=== PATIENT | male | born 1990 | race African-American/Black ===

== ENCOUNTER 2016-07-10 10:14 | Emergency (ER) | payer OTHER ==
[~2016-07-10] VITALS: Ht 180.3 cm; Wt 118.8 kg
[~2016-07-10 10:14] MED LIST: Lidocaine 1% MPF 10mg/ml 5ml ONE
[2016-07-10 10:45] VITALS: BP 135/93
[2016-07-10] MEDS ORDERED: Bacitracin Oint UD TOPIC ONE (11:15)
[2016-07-10] MEDS ORDERED: Hydrogen Peroxide 120ml Bottle TOPIC ONE (11:15)
[2016-07-10] MEDS ORDERED: Bactrim DS (160mg/800mg) tab ORAL ONE (11:15)
[2016-07-10] MEDS ORDERED: Lidocaine 1% MPF 10mg/ml 5ml INJ ONE (12:15)
[2016-07-10] MEDS ORDERED: CEPHALEXIN500 MG ORAL (13:51)
[2016-07-10] MEDS ORDERED: IBUPROFEN600 MG ORAL (13:51)
[2016-07-10] MEDS ORDERED: BACTRIM DS TAB1 EAC1 ORAL (13:51)
[2016-07-10 14:00] VITALS: BP 135/93
--- NOTE | 2016-07-11 01:24 | Emergency Room Report ---
History of Present Illness General Chief Complaint: Lower Extremity Injury Source: Patient Present Illness HPI Patient presents with R 3rd toe pain, swelling and pus. He has been trying to express the pus. No fevers. Started when he wore wet shoes and had abrasion of toe 1 1/2 week ago. Painful /10 some radiation to foot, not to ankle or calf. No numbness of foot. Worse pain when dependent. No h/o diabetes. Mom has DM. No fevers, chills, NVD, dyspnea, chest pain. No dysuria. Tetanus UTD. Allergies: Coded Allergies: Crab (Verified Allergy, Severe, N/V, 07/10/16) Lobster (Verified Allergy, Severe, N/V, 07/10/16) SHRIMP (Verified Allergy, Severe, N/V, 07/10/16) Patient History Past Medical History: see triage record Social History: Reports: smoking - prior Social History Narrative food checkers and cashiers supervisor Reviewed Nursing Documentation: PMH: Agreed, PSxH: Agreed Nursing Documentation-PMH Past Medical History: No Stated History Review of Systems All Other Systems: negative except mentioned in HPI Physical Exam Vital Signs Date Time Temp Pulse Resp B/P Pulse Ox O2 Delivery O2 Flow Rate FiO2 07/10/16 10:21 98.2 91 18 135/93 99 Room Air Sp02 EP Interpretation: reviewed, normal General Appearance: well appearing, no apparent distress, GCS 15, non-toxic Head: normocephalic, atraumatic Eyes: bilateral eye PERRL, bilateral eye normal inspection ENT: hearing grossly normal, normal voice, moist mucus membranes Neck: full range of motion, supple Respiratory: chest non-tender, lungs clear, no respiratory distress, speaking full sentences Cardiovascular #2: 2+ radial (L), 2+ dorsalis pedis (R) Gastrointestinal: other - grossly normal Musculoskeletal: back normal, gait/station normal, normal range of motion, inflammation, swelling - 3rd toe, fairly localized Neurologic: alert, sensory intact, grossly normal Psychiatric: mood/affect normal Skin: other - pus draining from 3rd toe with some devitalized skin, no significant erythema Procedures Incision and Drainage Incision and Drainage : Consent: Verbal Blade Size: 11 I & D Procedure: betadine prep, sterile drapes applied, sterile dressing applied, gauze wick placed Wound Location: other - R 3rd toe Wound's Depth, Shape: superficial Wound Explored: contaminated - pus expressed Irrigated w/ Saline (ccs): 15 Anesthesia: 1% Lidocaine - 1/2 digital block Splint Applied?: No Sling Applied?: No Patient Tolerated: Well Complications: None Medical Decision Making Diagnostic Impression: Primary Impression: Abscess of third toe, right ER Course Patient with infected 3rd R toe. DDx; cellulitis, abscess. Starting to drain, but still looks swollen. Patient denies DM. Needs I and D and antibiotics are indicated. I and D performed. Pus expressed. Some devitalized skin. Irrigated and packed. No more drainage. Improved. Patient stable for outpatient observation and treatment. Last Vital Signs Date Time Temp Pulse Resp B/P Pulse Ox O2 Delivery O2 Flow Rate FiO2 07/10/16 14:00 98.2 91 18 135/93 99 Room Air Status: improved Disposition: HOME, SELF-CARE Condition: Improved Scripts Cephalexin* (KEFLEX*) 500 Mg Capsule 500 MG ORAL EVERY 6 HOURS, #28 CAP Prov: Sherwin Roque M.D. 07/10/16 Trimethoprim/Sulfamethoxazole 160/800* (BACTRIM DS TABLET*) 1 Each Tablet 1 TAB ORAL TWICE A DAY, #14 TAB Prov: Sherwin Roque M.D. 07/10/16 Ibuprofen* (MOTRIN*) 600 Mg Tablet 600 MG ORAL Q6H Y for For Pain, #20 TAB Prov: Sherwin Roque M.D. 07/10/16 Departure Forms: Return to School Return to School On: Jul 13, 2016 School Release Restrictions: None Patient Instructions: Abscess Additional Instructions: Elevation. Return tomorrow to have the drain replaced. OK to take tylenol. Sherwin Roque M.D. Jul 11, 2016 01:24
== END 2016-07-10 14:00 | disposition home or self-care (01) ==
LOC: EMR 11:31
DX: L02.611 Cutaneous abscess of right foot (principal)
CPT/HCPCS: 10060

== ENCOUNTER 2016-07-11 07:52 | Inpatient (IN) | payer OTHER ==
[~2016-07-11] VITALS: Ht 177.8 cm; Wt 120.2 kg
[~2016-07-11 07:52] MED LIST changes: +BACTRIM DS TAB1 EAC1 ORAL; +CEPHALEXIN500 MG ORAL; +IBUPROFEN600 MG ORAL; -Lidocaine 1% MPF 10mg/ml 5ml ONE; +NS 275 ML ONE; +Tubing IV Cassette IV ONE; +Vancomycin 1gm inj IVPB ONE
[2016-07-11 08:10] VITALS: BP 130/90
[2016-07-11] MEDS ORDERED: Vancomycin 1 GM in NS 275 ML IVPB ONE (08:45)
--- NOTE | 2016-07-11 08:55 | Emergency Room Report ---
History of Present Illness General Chief Complaint: Wound Recheck/Suture Removal Source: Patient Present Illness HPI This patient was seen here yesterday for an infection on his 3rd right toe. He underwent incision and drainage and is on oral antibiotics.The patient returns for a wound recheck. The initial symptoms started about a week and a half ago. He states that he believes a toenail from his other toe cut into the skin of his toe and then he developed an infection. He has not had any fever or chills. He denies nausea or vomiting. He states that he has had minimal improvement in the wound and redness of the foot. Allergies: Coded Allergies: Crab (Verified Allergy, Severe, N/V, 07/10/16) Lobster (Verified Allergy, Severe, N/V, 07/10/16) SHRIMP (Verified Allergy, Severe, N/V, 07/10/16) Patient History Past Medical History: none Past Surgical History: none Social History: Denies: alcohol use, drug use, smoking Reviewed Nursing Documentation: PMH: Agreed, PSxH: Agreed Nursing Documentation-PMH Past Medical History: No Stated History Review of Systems All Other Systems: negative except mentioned in HPI Physical Exam Vital Signs Date Time Temp Pulse Resp B/P Pulse Ox O2 Delivery O2 Flow Rate FiO2 07/11/16 07:58 97.0 87 14 130/90 96 Room Air Sp02 EP Interpretation: reviewed, normal General Appearance: no apparent distress, alert, GCS 15, non-toxic Head: normocephalic, atraumatic Eyes: bilateral eye PERRL, bilateral eye normal inspection ENT: hearing grossly normal, normal pharynx, no angioedema, normal voice Neck: full range of motion, supple/symm/no masses Respiratory: no respiratory distress, no retraction, no accessory muscle use, speaking full sentences Cardiovascular #1: regular rate, rhythm Gastrointestinal: non-distended Rectal: deferred Musculoskeletal: back normal, normal range of motion, non-tender, other - R. 3rd toe with swelling, maceration, erythema and purulent discharge. R. foot with erythema and swelling to mid foot. Neurologic: alert, oriented x3, responsive, motor strength/tone normal, sensory intact, speech normal Psychiatric: judgement/insight normal, memory normal, mood/affect normal, no suicidal/homicidal ideation Skin: warm/dry, well hydrated, other - See MSK exam Medical Decision Making Diagnostic Impression: Primary Impression: Abscess of third toe, right Additional Impression: Cellulitis and abscess of foot ER Course This patient presents with cellulitis of the right foot and purulent drainage from the right third toe. The patient did undergo an incision and drainage yesterday and has been on oral antibiotics. He is feeling outpatient therapy. He was given IV vancomycin here in the emergency department. He will be admitted for further IV antibiotics and further evaluation by surgery for possible operative incision and drainage. No evidence of sepsis or systemic infection at this time. Labs Test 07/11/16 08:45 White Blood Count 10.2 K/UL (4.8-10.8) Red Blood Count 5.36 M/UL (4.70-6.10) Hemoglobin 16.0 G/DL (14.2-18.0) Hematocrit 47.9 % (42.0-52.0) Mean Corpuscular Volume 89 FL (80-99) Mean Corpuscular Hemoglobin 29.9 PG (27.0-31.0) Mean Corpuscular Hemoglobin Concent 33.5 G/DL (32.0-36.0) Red Cell Distribution Width 11.3 % (11.6-14.8) Platelet Count 239 K/UL (150-450) Mean Platelet Volume 7.4 FL (6.5-10.1) Neutrophils (%) (Auto) 79.9 % (45.0-75.0) Lymphocytes (%) (Auto) 10.9 % (20.0-45.0) Monocytes (%) (Auto) 6.2 % (1.0-10.0) Eosinophils (%) (Auto) 1.7 % (0.0-3.0) Basophils (%) (Auto) 1.3 % (0.0-2.0) Sodium Level 139 mEQ/L (135-145) Potassium Level 3.8 mEQ/L (3.4-4.9) Chloride Level 97 mEQ/L (98-107) Carbon Dioxide Level 27 mEQ/L (20-30) Anion Gap 15 (5-15) Blood Urea Nitrogen 9 mg/dL (7-23) Creatinine 1.0 mg/dL (0.7-1.2) Estimat Glomerular Filtration Rate > 60 mL/min (>60) Glucose Level 105 mg/dL (74-106) Calcium Level 9.7 mg/dL (8.6-10.2) Total Bilirubin 1.0 mg/dL (0.0-1.2) Aspartate Amino Transf (AST/SGOT) 38 U/L (5-40) Alanine Aminotransferase (ALT/SGPT) 49 U/L (3-41) Alkaline Phosphatase 66 U/L (40-129) Total Protein 7.8 g/dL (6.6-8.7) Albumin 4.3 g/dL (3.5-5.2) Globulin 3.5 g/dL Albumin/Globulin Ratio 1.2 (1.0-2.7) Last Vital Signs Date Time Temp Pulse Resp B/P Pulse Ox O2 Delivery O2 Flow Rate FiO2 07/11/16 08:10 97.0 87 14 130/90 96 Room Air Disposition: ADMITTED INPATIENT Condition: Stable Referrals: [facility],REFERRING (PCP) ROBERT NOLASCO D.O. Jul 11, 2016 08:55
[2016-07-11] MEDS ORDERED: Ketorolac 30mg Inj IV ONE (09:00)
[2016-07-11 09:04] LABS: BASOPHILS % (AUTO) 1.3 % (0.0-2.0); EOSINOPHILS % (AUTO) 1.7 % (0.0-3.0); LYMPHOCYTES % (AUTO) 10.9 % (20.0-45.0); MEAN CORPUSCULAR HEMOGLOBIN 29.9 PG (27.0-31.0); MEAN CORPUSCULAR HGB CONC 33.5 G/DL (32.0-36.0); MEAN CORPUSCULAR VOLUME 89 FL (80-99); MEAN PLATELET VOLUME 7.4 FL (6.5-10.1); MONOCYTES % (AUTO) 6.2 % (1.0-10.0); NEUTROPHILS % (AUTO) 79.9 % (45.0-75.0); PLATELET COUNT 239 K/UL (150-450); RED BLOOD COUNT 5.36 M/UL (4.70-6.10); RED CELL DISTRIBUTION WIDTH 11.3 % (11.6-14.8); WHITE BLOOD COUNT 10.2 K/UL (4.8-10.8)
[2016-07-11 09:16] LABS: ALANINE AMINOTRANSFERASE 49 U/L (3-41); ALBUMIN/GLOBULIN RATIO 1.2 (1.0-2.7); ANION GAP 15 (5-15); ASPARTATE AMINO TRANSFERASE 38 U/L (5-40); CALCIUM 9.7 mg/dL (8.6-10.2); CARBON DIOXIDE 27 mEQ/L (20-30); CHLORIDE 97 mEQ/L (98-107); GLOMERULAR FILTRATION RATE > 60 mL/min (>60); HEMOLYSIS 3; POTASSIUM 3.8 mEQ/L (3.4-4.9); SODIUM 139 mEQ/L (135-145); TOTAL PROTEIN 7.8 g/dL (6.6-8.7)
[2016-07-11] MEDS ORDERED: Mylanta II UD 30ml ORAL PRN (13:15)
[2016-07-11] MEDS ORDERED: LORazepam Inj 2mg/ml 1ml IV PRN (13:15)
[2016-07-11] MEDS ORDERED: Miralax 17gm pkt ORAL PRN (13:15)
[2016-07-11 13:45] VITALS: BP 131/75
[2016-07-11] MEDS: Morphine Sulfate 2mg/ml Inj IVP PRN ×2 (16:01→20:25)
[2016-07-11] MEDS: Cefepime HCl 1 GM in D5W 55 ML IV SCH (16:01)
--- NOTE | 2016-07-11 17:25 | History and Physical ---
History of Present Illness General Date patient seen: Jul 11, 2016 Reason for Hospitalization: Wound Recheck/Suture Removal Present Illness HPI 25 year old male with an infection on his 3rd right toe was seen in ER yesterday for incision and drainage .The patient returned for a wound recheck. The initial symptoms started about a week and a half ago. He states that he believes a toenail from his other toe cut into the skin of his toe and then he developed an infection. He states that he has had minimal improvement in the wound and redness of the foot. He is admitted for surgical evaluation and possible IV antibiotics. Allergies: Coded Allergies: Crab (Verified Allergy, Severe, N/V, 07/10/16) Lobster (Verified Allergy, Severe, N/V, 07/10/16) SHRIMP (Verified Allergy, Severe, N/V, 07/10/16) Medication History Scheduled Cephalexin* (Keflex*), 500 MG ORAL EVERY 6 HOURS Trimethoprim/Sulfamethoxazole 160/800* (Bactrim Ds Tablet*), 1 TAB ORAL TWICE A DAY Scheduled PRN Ibuprofen* (Motrin*), 600 MG ORAL Q6H PRN for For Pain Patient History Healthcare decision maker Resuscitation status Full Code Advanced Directive on File Past Medical/Surgical History Past Medical/Surgical History: (1) No significant past medical history Review of Systems All Other Systems: negative except mentioned in HPI Physical Exam General Appearance: WD/WN Lines, tubes and drains: peripheral HEENT: normocephalic Neck: non-tender, normal alignment Cardiovascular/Chest: normal peripheral pulses, normal rate Genitourinary/Rectal: normal genital exam Extremities: other - right 2 toe swelling Last 24 Hour Vital Signs Date Time Temp Pulse Resp B/P Pulse Ox O2 Delivery O2 Flow Rate FiO2 07/11/16 13:45 97.6 70 21 131/75 95 Room Air 07/11/16 11:33 97.0 87 14 130/90 96 Room Air 07/11/16 09:35 97.0 07/11/16 08:10 97.0 87 14 130/90 96 Room Air 07/11/16 07:58 97.0 87 14 130/90 96 Room Air Laboratory Tests Test 07/11/16 08:45 White Blood Count 10.2 K/UL (4.8-10.8) Red Blood Count 5.36 M/UL (4.70-6.10) Hemoglobin 16.0 G/DL (14.2-18.0) Hematocrit 47.9 % (42.0-52.0) Mean Corpuscular Volume 89 FL (80-99) Mean Corpuscular Hemoglobin 29.9 PG (27.0-31.0) Mean Corpuscular Hemoglobin Concent 33.5 G/DL (32.0-36.0) Red Cell Distribution Width 11.3 % (11.6-14.8) L Platelet Count 239 K/UL (150-450) Mean Platelet Volume 7.4 FL (6.5-10.1) Neutrophils (%) (Auto) 79.9 % (45.0-75.0) H Lymphocytes (%) (Auto) 10.9 % (20.0-45.0) L Monocytes (%) (Auto) 6.2 % (1.0-10.0) Eosinophils (%) (Auto) 1.7 % (0.0-3.0) Basophils (%) (Auto) 1.3 % (0.0-2.0) Sodium Level 139 mEQ/L (135-145) Potassium Level 3.8 mEQ/L (3.4-4.9) Chloride Level 97 mEQ/L (98-107) L Carbon Dioxide Level 27 mEQ/L (20-30) Anion Gap 15 (5-15) Blood Urea Nitrogen 9 mg/dL (7-23) Creatinine 1.0 mg/dL (0.7-1.2) Estimat Glomerular Filtration Rate > 60 mL/min (>60) Glucose Level 105 mg/dL (74-106) Calcium Level 9.7 mg/dL (8.6-10.2) Total Bilirubin 1.0 mg/dL (0.0-1.2) Aspartate Amino Transf (AST/SGOT) 38 U/L (5-40) Alanine Aminotransferase (ALT/SGPT) 49 U/L (3-41) H Alkaline Phosphatase 66 U/L (40-129) Total Protein 7.8 g/dL (6.6-8.7) Albumin 4.3 g/dL (3.5-5.2) Globulin 3.5 g/dL Albumin/Globulin Ratio 1.2 (1.0-2.7) Microbiology Date/Time Source Procedure Growth Status 07/11/16 08:30 Wound Gram Stain - Final Resulted 07/11/16 08:30 Wound Wound Culture Pending Resulted Height (Feet): 5 Height (Inches): 10.00 Weight (Pounds): 265 Medications Current Medications Medications (Trade) Dose Ordered Sig/Jordi Route PRN Reason Start Time Stop Time Status Last Admin Dose Admin Acetaminophen (Tylenol) 650 mg Q4H PRN ORAL fever 07/11/16 13:15 08/10/16 13:14 Al Hydroxide/Mg Hydroxide (Mylanta II) 30 ml Q6H PRN ORAL dyspepsia 07/11/16 13:15 08/10/16 13:14 Cefepime HCl 1 gm/ Dextrose 55 ml @ 110 mls/hr Q12HR@0400,1600 IV 07/11/16 16:00 07/18/16 15:59 07/11/16 16:01 Dextrose (Dextrose 50%) STAT PRN IV Hypoglycemia 07/11/16 13:15 08/10/16 13:14 Heparin Sodium (Porcine) (Heparin 5000 units/ml) 5,000 units EVERY 12 HOURS SUBQ 07/11/16 21:00 08/10/16 20:59 Lorazepam (Ativan 2mg/ml 1ml) 0.5 mg Q4H PRN IV For Anxiety 07/11/16 13:15 07/18/16 13:14 Morphine Sulfate (Morphine Sulfate) 1 mg Q4H PRN IVP For Pain 07/11/16 13:15 07/18/16 13:14 07/11/16 16:01 Ondansetron HCl (Zofran) 4 mg Q6H PRN IVP Nausea & Vomiting 07/11/16 13:15 08/10/16 13:14 Polyethylene Glycol (Miralax) 17 gm HSPRN PRN ORAL Constipation 07/11/16 13:15 08/10/16 13:14 Vancomycin HCl 1 ea 1 ea DAILY PRN MISC Per rx protocol 07/11/16 13:15 08/10/16 13:14 Vancomycin HCl/ Dextrose (Vancomycin/D5W) 325 ml @ 162.5 mls/ hr Q8HR@0100,0900,1700 IVPB 07/11/16 17:00 07/16/16 16:59 Zolpidem Tartrate (Ambien) 5 mg HSPRN PRN ORAL Insomnia 07/11/16 13:15 08/10/16 13:14 BERNY CONNER Jul 11, 2016 17:25
[2016-07-11] MEDS: Vancomycin 1.5 GM in D5W 325 ML IVPB SCH (17:38)
[2016-07-11] MEDS: Heparin 5000 units/ml inj SUBQ SCH (20:24)
[2016-07-12] VITALS: BP 135/78
[2016-07-12] MEDS: Morphine Sulfate 2mg/ml Inj IVP PRN ×3 (00:24→16:32)
[2016-07-12] MEDS: Vancomycin 1.5 GM in D5W 325 ML IVPB SCH ×3 (00:24→20:50)
[2016-07-12 04:00] VITALS: BP 134/75
[2016-07-12] MEDS: Cefepime HCl 1 GM in D5W 55 ML IV SCH ×2 (04:08→16:31)
[2016-07-12 07:55] LABS: HEMOGLOBIN A1C 5.2 % (< 6.0)
[2016-07-12 08:00] VITALS: BP 141/78
[2016-07-12] MEDS ORDERED: Morphine Sulfate 2mg/ml Inj IVP PRN ×2 (08:00→08:02)
[2016-07-12 08:05] LABS: BASOPHILS % (AUTO) 0.7 % (0.0-2.0); EOSINOPHILS % (AUTO) 3.1 % (0.0-3.0); LYMPHOCYTES % (AUTO) 18.8 % (20.0-45.0); MEAN CORPUSCULAR HEMOGLOBIN 29.4 PG (27.0-31.0); MEAN CORPUSCULAR HGB CONC 32.7 G/DL (32.0-36.0); MEAN CORPUSCULAR VOLUME 90 FL (80-99); MEAN PLATELET VOLUME 7.1 FL (6.5-10.1); MONOCYTES % (AUTO) 7.4 % (1.0-10.0); NEUTROPHILS % (AUTO) 69.9 % (45.0-75.0); PLATELET COUNT 229 K/UL (150-450); RED BLOOD COUNT 4.98 M/UL (4.70-6.10); RED CELL DISTRIBUTION WIDTH 11.6 % (11.6-14.8); WHITE BLOOD COUNT 8.8 K/UL (4.8-10.8)
[2016-07-12 08:13] LABS: ALANINE AMINOTRANSFERASE 39 U/L (3-41); ALBUMIN/GLOBULIN RATIO 1.1 (1.0-2.7); ANION GAP 16 (5-15); ASPARTATE AMINO TRANSFERASE 27 U/L (5-40); CALCIUM 9.2 mg/dL (8.6-10.2); CARBON DIOXIDE 25 mEQ/L (20-30); CHLORIDE 97 mEQ/L (98-107); CHOLESTEROL 136 mg/dL (< 200); CHOLESTEROL/HDL RATIO 2.7 (3.3-4.4); CREATININE 0.9 mg/dL (0.7-1.2); GLOMERULAR FILTRATION RATE > 60 mL/min (>60); HEMOLYSIS 6; LDL CHOLESTEROL (CALC.) 70 mg/dL (60-99); POTASSIUM 3.9 mEQ/L (3.4-4.9); SODIUM 138 mEQ/L (135-145)
[2016-07-12] MEDS: Heparin 5000 units/ml inj SUBQ SCH ×2 (09:00→21:00)
--- NOTE | 2016-07-12 10:23 | Consultation ---
Consult Note Consult Note Consulting specialty: Podiatry Consulting physician: Jameel Samano DPM covering for Wing Garcia DPM Reason for consult: Right 3rd toe abscess History of Present Illness: Ciaran Barrios is a 25 year old male who was admitted on Jul 11, 2016 at 10:25 with right 3rd toe abscess. He states that the wound started one week ago huynh his adjacent 4th toe had an elongated toenail that rubbed against the 3rd toe causing a wound. The wound started becoming inflamed, painful, and edematous. He was evaluated at the emergency department 2 days ago, an I&D was performed, the wound was packed, and he was started on oral antibiotics. He returned to the emergency department yesterday for re-evaluation and was admitted to the hospital. He denies nausea, vomiting, fevers, or chills. Problems: No known Social History: Patient states that he smoked 3-4 cigarettes per day, drinks alcohol 2-3 times per week (drinking 3-4 beers), and denies illicit drug use Family and Surgical History: Non contributory Subjective Subjective Allergies: Coded Allergies: Crab (Verified Allergy, Severe, N/V, 07/10/16) Lobster (Verified Allergy, Severe, N/V, 07/10/16) SHRIMP (Verified Allergy, Severe, N/V, 07/10/16) Antibiotics: Vancomycin and Cefepime. Please refer to chart for all other medications Objective Objective Exam Last 24 Hour Vital Signs Date Time Temp Pulse Resp B/P Pulse Ox O2 Delivery O2 Flow Rate FiO2 07/12/16 08:00 97.9 87 18 141/78 98 Room Air 07/12/16 04:00 97.7 76 18 134/75 100 Room Air 07/12/16 00:00 98.1 80 16 135/78 95 Room Air 07/11/16 13:45 97.6 70 21 131/75 95 Room Air 07/11/16 11:33 97.0 87 14 130/90 96 Room Air Laboratory Tests Test 07/12/16 06:00 White Blood Count 8.8 K/UL (4.8-10.8) Red Blood Count 4.98 M/UL (4.70-6.10) Hemoglobin 14.7 G/DL (14.2-18.0) Hematocrit 44.9 % (42.0-52.0) Mean Corpuscular Volume 90 FL (80-99) Mean Corpuscular Hemoglobin 29.4 PG (27.0-31.0) Mean Corpuscular Hemoglobin Concent 32.7 G/DL (32.0-36.0) Red Cell Distribution Width 11.6 % (11.6-14.8) Platelet Count 229 K/UL (150-450) Mean Platelet Volume 7.1 FL (6.5-10.1) Neutrophils (%) (Auto) 69.9 % (45.0-75.0) Lymphocytes (%) (Auto) 18.8 % (20.0-45.0) L Monocytes (%) (Auto) 7.4 % (1.0-10.0) Eosinophils (%) (Auto) 3.1 % (0.0-3.0) H Basophils (%) (Auto) 0.7 % (0.0-2.0) Sodium Level 138 mEQ/L (135-145) Potassium Level 3.9 mEQ/L (3.4-4.9) Chloride Level 97 mEQ/L (98-107) L Carbon Dioxide Level 25 mEQ/L (20-30) Anion Gap 16 (5-15) H Blood Urea Nitrogen 9 mg/dL (7-23) Creatinine 0.9 mg/dL (0.7-1.2) Estimat Glomerular Filtration Rate > 60 mL/min (>60) Glucose Level 106 mg/dL (74-106) Hemoglobin A1c 5.2 % (< 6.0) Calcium Level 9.2 mg/dL (8.6-10.2) Total Bilirubin 0.6 mg/dL (0.0-1.2) Aspartate Amino Transf (AST/SGOT) 27 U/L (5-40) Alanine Aminotransferase (ALT/SGPT) 39 U/L (3-41) Alkaline Phosphatase 75 U/L (40-129) Total Protein 7.0 g/dL (6.6-8.7) Albumin 3.7 g/dL (3.5-5.2) Globulin 3.3 g/dL Albumin/Globulin Ratio 1.1 (1.0-2.7) Triglycerides Level 73 mg/dL (< 150) Cholesterol Level 136 mg/dL (< 200) LDL Cholesterol 70 mg/dL (60-99) HDL Cholesterol 51 mg/dL (> 60) Cholesterol/HDL Ratio 2.7 (3.3-4.4) L Thyroid Stimulating Hormone (TSH) 1.320 uIU/mL (0.300-4.500) Microbiology Date/Time Source Procedure Growth Status 07/11/16 08:30 Wound Gram Stain - Final Resulted 07/11/16 08:30 Wound Wound Culture Pending Resulted Assessment/Plan ASSESSMENT: - Right 3rd toe abscess - Right foot pain PLAN: - Consent obtained to perform I&D - Ordering MRI to evaluate for osteomyelitis - Continue pain management - Continue daily dressing changes - Follow up wound culture ADDENDUM: Consent was obtained and the right foot 3rd toe was anesthetized using 3cc of 2 % lidocaine plain. Once appropriate anesthesia was achieved an I&D was performed and approximately 3mL of purulence was drained. The patient tolerated the procedure well without complications. The wound was dressed with betadine moistened gauze, dry 4x4 gauze, and secured with kerlix. Jameel Samano DPM Jul 12, 2016 10:23
--- NOTE | 2016-07-12 11:05 | Consultation ---
Consult Note Consult Note ID # [id number] DENIA ANTONY M.D. Jul 12, 2016 11:05
[2016-07-12] MEDS ORDERED: Lidocaine 2% MPF 5ml Vial INJ ONE (11:30)
[2016-07-12 12:00] VITALS: BP 147/78
[2016-07-12] MEDS: Morphine Sulfate 4mg/ml Inj IVP PRN ×3 (13:37→23:01)
[2016-07-12 16:00] VITALS: BP 149/90
--- NOTE | 2016-07-12 17:06 | Diagnostic Imaging Report ---
Indication: Pain, swelling, cellulitis of right middle no history infected cut on toe x1 week, history of drainage x1 day Technique: Sagittal, axial, coronal T1 fast spin-echo and fast spin-echo STIR images obtained of the right foot. Comparison: None. No plain radiographs available. Findings: There is edema of the third digit. No focal fluid collections are demonstrated. There is subtle slightly increased STIR signal within the third distal phalanx, but no comparable T1 signal abnormality. No marrow signal abnormality is demonstrated elsewhere. Impression: Edema of the third digit, consistent with stated clinical history of cellulitis. No drainable fluid collection demonstrated Very slight T2 signal abnormality of the third distal phalanx without corresponding T1 signal abnormal. Most likely reactive marrow edema secondary to the surrounding cellulitis, but early osteomyelitis cannot be completely ruled out. No other bony signal abnormality demonstrated.
[2016-07-12 19:00] VITALS: BP 148/76
--- NOTE | 2016-07-12 20:38 | Consultation ---
DATE OF CONSULTATION: INFECTIOUS DISEASES CONSULTATION CONSULTING PHYSICIAN: Collin Delaney M.D. REFERRING PHYSICIAN: Dari Cunha M.D. REASON FOR CONSULTATION: Evaluation of the patient for left foot cellulitis with infection, possible osteomyelitis, antibiotic management. HISTORY OF PRESENT ILLNESS: The patient is a 25-year-old male with past medical history significant for obesity, who was admitted to this medical center with the left third toe wound. The patient was seen recently in the emergency room. I and D was done. The patient was discharged with oral antibiotic, however, the patient did not improve and now has been admitted for further workups. PAST MEDICAL HISTORY: As mentioned above. ALLERGIES: No known drug allergies. FAMILY HISTORY: Noncontributory. REVIEW OF SYSTEMS: HEENT: No recent change in vision or hearing. Pulmonary: No cough or shortness of breath. Cardiovascular: No chest pain or palpitation. Gastrointestinal/abdomen: No nausea or vomiting. Genitourinary: No dysuria. Musculoskeletal: As mentioned above. Neurologic: No seizure. LABORATORY DATA: White blood cells 8.8, hemoglobin 14, and platelets 229,000. BUN 9 and creatinine 0.9. ALT and AST unremarkable. Wound culture is pending. Blood culture is pending. PHYSICAL EXAMINATION: VITAL SIGNS: Temperature 97.9 degrees, blood pressure 141/78, pulse 86, and respiratory rate 18. HEENT: Mild pale conjunctivae. No icterus. NECK: No lymphadenopathy. CHEST: Coarse breathing sounds. HEART: S1 and S2. ABDOMEN: Soft and nontender. EXTREMITIES: The patient has a left wound on the lateral aspect of the third toe with purulent discharge. NEUROLOGIC: Awake and alert. ASSESSMENT: 1. Left third toe wound infection/abscess, rule out osteomyelitis. 2. Rule out bacteremia. PLAN: 1. We will continue the patient on vancomycin and cefepime. 2. Monitor CBC. 3. Monitor BMP. 4. Monitor cultures (wound and blood). 5. We will follow MRI reports. Based on patient's clinical course and labs, we will do further recommendations. 6. Podiatry is following the patient for further management. Thank you, Dr. Cunha, for allowing me to participate in the care this patient. I will follow the patient with you during this hospitalization. Collin Delaney M.D. DR: KATHRINE JOB#: [id number] CC:
--- NOTE | 2016-07-12 22:37 | Pulmonology Progress Note ---
Assessment/Plan Problems: (1) Abscess of third toe, right Assessment/Plan improving s/p debridement MRI done Subjective ROS Limited/Unobtainable: No Interval Events: less pain, doing better, Allergies: Coded Allergies: Crab (Verified Allergy, Severe, N/V, 07/10/16) Lobster (Verified Allergy, Severe, N/V, 07/10/16) SHRIMP (Verified Allergy, Severe, N/V, 07/10/16) Objective Last 24 Hour Vital Signs Date Time Temp Pulse Resp B/P Pulse Ox O2 Delivery O2 Flow Rate FiO2 07/12/16 19:00 97.5 91 20 148/76 98 Room Air 07/12/16 17:02 97.3 07/12/16 16:00 97.3 84 20 149/90 99 Room Air 07/12/16 12:00 97.7 88 24 147/78 100 Room Air 07/12/16 08:00 97.9 87 18 141/78 98 Room Air 07/12/16 04:00 97.7 76 18 134/75 100 Room Air 07/12/16 00:00 98.1 80 16 135/78 95 Room Air Intake and Output 07/11/16 07/12/16 19:00 07:00 Intake Total 275 ml 400 ml Balance 275 ml 400 ml Intake Oral 400 ml IV Total 275 ml # Voids 4 General Appearance: WD/WN HEENT: normocephalic Respiratory/Chest: chest wall non-tender, lungs clear Cardiovascular: normal peripheral pulses, normal rate Abdomen: normal bowel sounds Genitourinary: normal external genitalia 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 Lymphatic: no neck adenopathy Microbiology Date/Time Source Procedure Growth Status 07/11/16 08:30 Wound Gram Stain - Final Resulted 07/11/16 08:30 Wound Culture - Preliminary Staphylococcus Aureus Resulted Laboratory Tests 07/12/16 06:00: White Blood Count 8.8, Red Blood Count 4.98, Hemoglobin 14.7, Hematocrit 44.9, Mean Corpuscular Volume 90, Mean Corpuscular Hemoglobin 29.4, Mean Corpuscular Hemoglobin Concent 32.7, Red Cell Distribution Width 11.6, Platelet Count 229, Mean Platelet Volume 7.1, Neutrophils (%) (Auto) 69.9, Lymphocytes (%) (Auto) 18.8L, Monocytes (%) (Auto) 7.4, Eosinophils (%) (Auto) 3.1H, Basophils (%) ( Auto) 0.7, Sodium Level 138, Potassium Level 3.9, Chloride Level 97L, Carbon Dioxide Level 25, Anion Gap 16H, Blood Urea Nitrogen 9, Creatinine 0.9, Estimat Glomerular Filtration Rate > 60, Glucose Level 106, Hemoglobin A1c 5.2, Calcium Level 9.2, Total Bilirubin 0.6, Aspartate Amino Transf (AST/SGOT) 27, Alanine Aminotransferase (ALT/SGPT) 39, Alkaline Phosphatase 75, Total Protein 7.0, Albumin 3.7, Globulin 3.3, Albumin/Globulin Ratio 1.1, Triglycerides Level 73, Cholesterol Level 136, LDL Cholesterol 70, HDL Cholesterol 51, Cholesterol/HDL Ratio 2.7L, Thyroid Stimulating Hormone (TSH) 1.320 07/12/16 16:30: Vancomycin Level Trough 10.7 Current Medications Medications (Trade) Dose Ordered Sig/Jordi Route PRN Reason Start Time Stop Time Status Last Admin Dose Admin Acetaminophen (Tylenol) 650 mg Q4H PRN ORAL fever 07/11/16 13:15 08/10/16 13:14 Al Hydroxide/Mg Hydroxide (Mylanta II) 30 ml Q6H PRN ORAL dyspepsia 07/11/16 13:15 08/10/16 13:14 Cefepime HCl 1 gm/ Dextrose 55 ml @ 110 mls/hr Q12HR@0400,1600 IV 07/11/16 16:00 07/18/16 15:59 07/12/16 16:31 Cyclobenzaprine HCl (Flexeril) 5 mg Q6H PRN ORAL Muscle Spasm 07/12/16 17:00 08/11/16 16:59 Dextrose (Dextrose 50%) STAT PRN IV Hypoglycemia 07/11/16 13:15 08/10/16 13:14 Heparin Sodium (Porcine) (Heparin 5000 units/ml) 5,000 units EVERY 12 HOURS SUBQ 07/11/16 21:00 08/10/16 20:59 07/12/16 21:00 Lorazepam (Ativan 2mg/ml 1ml) 0.5 mg Q4H PRN IV For Anxiety 07/11/16 13:15 07/18/16 13:14 Morphine Sulfate (Morphine Sulfate) 2 mg Q4H PRN IVP Moderate Pain (Pain Scale 4-6) 07/12/16 12:03 07/19/16 12:02 07/12/16 16:32 Morphine Sulfate (Morphine Sulfate) 4 mg Q3HR PRN IVP Severe Pain (Pain Scale 7-10) 07/12/16 12:30 07/19/16 12:29 07/12/16 20:50 Ondansetron HCl (Zofran) 4 mg Q6H PRN IVP Nausea & Vomiting 07/11/16 13:15 08/10/16 13:14 Polyethylene Glycol (Miralax) 17 gm HSPRN PRN ORAL Constipation 07/11/16 13:15 08/10/16 13:14 Vancomycin HCl 1 ea 1 ea DAILY PRN MISC Per rx protocol 07/11/16 13:15 08/10/16 13:14 Vancomycin HCl/ Dextrose (Vancomycin/D5W) 325 ml @ 162.5 mls/ hr Q8HR@0100,0900,1700 IVPB 07/11/16 17:00 07/16/16 16:59 07/12/16 20:50 Zolpidem Tartrate (Ambien) 5 mg HSPRN PRN ORAL Insomnia 07/11/16 13:15 08/10/16 13:14 BERNY CONNER Jul 12, 2016 22:37
[2016-07-13] MEDS: Vancomycin 1.5 GM in D5W 325 ML IVPB SCH ×3 (00:41→17:13)
[2016-07-13] MEDS: Cefepime HCl 1 GM in D5W 55 ML IV SCH ×2 (03:32→15:56)
[2016-07-13] MEDS: Morphine Sulfate 4mg/ml Inj IVP PRN ×3 (03:39→16:04)
[2016-07-13 08:15] VITALS: BP 130/77
[2016-07-13] MEDS: Heparin 5000 units/ml inj SUBQ SCH ×2 (08:56→21:15)
[2016-07-13 11:29] VITALS: BP 125/74
--- NOTE | 2016-07-13 12:19 | Podiatric Progress Note ---
Assessment/Plan Patient Ciaran Barrios is a 25 year old male who was admitted on Jul 11, 2016 at 10:25 with right foot 3rd toe abscess Problems: (1) Cellulitis and abscess of foot (2) Abscess of third toe, right Assessment/Plan - More purulence was expressed from the wound today. Continue daily dressing changes - Culture is positive for MRSA. Right foot MRI with "very slight T2 signal abnormality of the third distal phalanx without corresponding T1 signal abnormal ." Continue appropriate antibiotics per infectious disease specialist recommendations - Will continue to monitor patient closely - Okay to weight bear on right heel Subjective Reason for consult Right 3rd toe abscess Allergies: Coded Allergies: Crab (Verified Allergy, Severe, N/V, 07/10/16) Lobster (Verified Allergy, Severe, N/V, 07/10/16) SHRIMP (Verified Allergy, Severe, N/V, 07/10/16) Subjective Patient states that the toe feels much better than yesterday. He is able to move the toe with minimal pain. No nausea, vomiting, fevers, or chills Objective Exam Last 24 Hour Vital Signs Date Time Temp Pulse Resp B/P Pulse Ox O2 Delivery O2 Flow Rate FiO2 07/13/16 11:29 97.7 74 19 125/74 97 Room Air 07/13/16 09:20 97.9 07/13/16 08:15 97.9 85 19 130/77 95 Room Air 07/12/16 19:00 97.5 91 20 148/76 98 Room Air 07/12/16 17:02 97.3 07/12/16 16:00 97.3 84 20 149/90 99 Room Air Laboratory Tests Test 07/12/16 16:30 Vancomycin Level Trough 10.7 ug/mL (5.0-12.0) Microbiology Date/Time Source Procedure Growth Status 07/11/16 08:30 Wound Gram Stain - Final Complete 07/11/16 08:30 Wound Culture - Final Staphylococcus Aureus - Mrsa Complete Exam Narrative Right 3rd toe with edema, erythema, and warmth. There is a wound on the lateral aspect of the toe. Purulence continues to drain from the wound but is much less compared to yesterday. IMAGING: Procedure: MRI Right Foot WO Contrast Indication: Pain, swelling, cellulitis of right middle no history infected cut on toe x1 week, history of drainage x1 day Technique: Sagittal, axial, coronal T1 fast spin-echo and fast spin-echo STIR images obtained of the right foot. Comparison: None. No plain radiographs available. Findings: There is edema of the third digit. No focal fluid collections are demonstrated. There is subtle slightly increased STIR signal within the third distal phalanx, but no comparable T1 signal abnormality. No marrow signal abnormality is demonstrated elsewhere. Impression: Edema of the third digit, consistent with stated clinical history of cellulitis. No drainable fluid collection demonstrated Very slight T2 signal abnormality of the third distal phalanx without corresponding T1 signal abnormal. Most likely reactive marrow edema secondary to the surrounding cellulitis, but early osteomyelitis cannot be completely ruled out. No other bony signal abnormality demonstrated. Jameel Samano DPM Jul 13, 2016 12:19
[2016-07-13 16:00] VITALS: BP 135/71
[2016-07-13 19:00] VITALS: BP 137/79
--- NOTE | 2016-07-13 20:36 | Infectious Diseases Prog Note ---
Assessment/Plan Assessment/Plan A The patient is a 25-year-old male with left foot cellulitis/ left third toe wound infection Wnd Cx: MRSA MRI : early osteomyelitis cannot be completely ruled out. PLAN: Cont vancomycin and cefepime d# 2 Monitor CBC. Monitor BMP. Monitor cultures ( blood). Bone scan . Podiatry Subjective Constitutional: Denies: anorexia, chills, drenching sweats, fatigue, fever, no symptoms, other Allergies: Coded Allergies: Crab (Verified Allergy, Severe, N/V, 07/10/16) Lobster (Verified Allergy, Severe, N/V, 07/10/16) SHRIMP (Verified Allergy, Severe, N/V, 07/10/16) Objective Vital Signs Last 24 Hour Vital Signs Date Time Temp Pulse Resp B/P Pulse Ox O2 Delivery O2 Flow Rate FiO2 07/13/16 16:34 97.7 07/13/16 16:00 97.9 82 20 135/71 98 Room Air 07/13/16 11:29 97.7 74 19 125/74 97 Room Air 07/13/16 08:15 97.9 85 19 130/77 95 Room Air Height (Feet): 5 Height (Inches): 10.00 Weight (Pounds): 265 HEENT: atraumatic Respiratory/Chest: normal breath sounds Cardiovascular: regular rhythm Abdomen: non distended Microbiology Date/Time Source Procedure Growth Status 07/11/16 08:30 Wound Gram Stain - Final Complete 07/11/16 08:30 Wound Culture - Final Staphylococcus Aureus - Mrsa Complete Current Medications Medications (Trade) Dose Ordered Sig/Jordi Route PRN Reason Start Time Stop Time Status Last Admin Dose Admin Acetaminophen (Tylenol) 650 mg Q4H PRN ORAL fever 07/11/16 13:15 08/10/16 13:14 Al Hydroxide/Mg Hydroxide (Mylanta II) 30 ml Q6H PRN ORAL dyspepsia 07/11/16 13:15 08/10/16 13:14 Cefepime HCl/ Dextrose (Maxipime/D5W) 55 ml @ 110 mls/hr Q12HR@0400,1600 IV 07/11/16 16:00 07/18/16 15:59 07/13/16 15:56 Cyclobenzaprine HCl 5 mg 5 mg Q6H PRN ORAL Muscle Spasm 07/12/16 17:00 08/11/16 16:59 Dextrose (Dextrose 50%) STAT PRN IV Hypoglycemia 07/11/16 13:15 08/10/16 13:14 Heparin Sodium (Porcine) (Heparin 5000 units/ml) 5,000 units EVERY 12 HOURS SUBQ 07/11/16 21:00 08/10/16 20:59 07/13/16 08:56 Lorazepam (Ativan 2mg/ml 1ml) 0.5 mg Q4H PRN IV For Anxiety 07/11/16 13:15 07/18/16 13:14 Morphine Sulfate (Morphine Sulfate) 2 mg Q4H PRN IVP Moderate Pain (Pain Scale 4-6) 07/12/16 12:03 07/19/16 12:02 07/12/16 16:32 Morphine Sulfate (Morphine Sulfate) 4 mg Q3HR PRN IVP Severe Pain (Pain Scale 7-10) 07/12/16 12:30 07/19/16 12:29 07/13/16 16:04 Ondansetron HCl (Zofran) 4 mg Q6H PRN IVP Nausea & Vomiting 07/11/16 13:15 08/10/16 13:14 Polyethylene Glycol (Miralax) 17 gm HSPRN PRN ORAL Constipation 07/11/16 13:15 08/10/16 13:14 Vancomycin HCl 1 ea 1 ea DAILY PRN MISC Per rx protocol 07/11/16 13:15 08/10/16 13:14 Vancomycin HCl/ Dextrose (Vancomycin/D5W) 275 ml @ 183.333 mls/hr Q6HR IVPB 07/14/16 00:00 07/19/16 00:00 Zolpidem Tartrate (Ambien) 5 mg HSPRN PRN ORAL Insomnia 07/11/16 13:15 08/10/16 13:14 DENIA ANTONY M.D. Jul 13, 2016 20:36
[2016-07-13] MEDS: Morphine Sulfate 2mg/ml Inj IVP PRN (21:10)
[2016-07-13] MEDS: Cyclobenzaprine 10mg Tab ORAL PRN (21:18)
--- NOTE | 2016-07-13 22:49 | Diagnostic Imaging Report ---
APPROVED REPORT CPT Code: 49366 Present Symptoms Comments: Right foot pain BILATERAL: Imaging reveals a patent deep venous system bilaterally. There is no evidence of thrombus within the femoral, popliteal or tibial segments. The greater saphenous veins are also within normal limits. Doppler indicates normal spontaneous flow within these segments.
--- NOTE | 2016-07-13 23:23 | Pulmonology Progress Note ---
Assessment/Plan Problems: (1) Abscess of third toe, right Assessment/Plan improving s/p debridement MRI done Subjective ROS Limited/Unobtainable: No Interval Events: less pain Allergies: Coded Allergies: Crab (Verified Allergy, Severe, N/V, 07/10/16) Lobster (Verified Allergy, Severe, N/V, 07/10/16) SHRIMP (Verified Allergy, Severe, N/V, 07/10/16) Objective Last 24 Hour Vital Signs Date Time Temp Pulse Resp B/P Pulse Ox O2 Delivery O2 Flow Rate FiO2 07/13/16 21:40 97.7 07/13/16 21:40 97.7 07/13/16 19:00 97.7 81 20 137/79 99 Room Air 07/13/16 16:34 97.7 07/13/16 16:00 97.9 82 20 135/71 98 Room Air 07/13/16 11:29 97.7 74 19 125/74 97 Room Air 07/13/16 08:15 97.9 85 19 130/77 95 Room Air Intake and Output 07/12/16 07/13/16 19:00 07:00 Intake Total 440 ml 240 ml Output Total 500 ml Balance 440 ml -260 ml Intake Oral 440 ml 240 ml Output Urine Total 500 ml # Voids 1 3 General Appearance: WD/WN HEENT: normocephalic, atraumatic Respiratory/Chest: chest wall non-tender, lungs clear Cardiovascular: normal peripheral pulses, normal rate Abdomen: normal bowel sounds, soft, non tender Genitourinary: normal external genitalia Microbiology Date/Time Source Procedure Growth Status 07/11/16 08:30 Wound Gram Stain - Final Complete 07/11/16 08:30 Wound Culture - Final Staphylococcus Aureus - Mrsa Complete Current Medications Medications (Trade) Dose Ordered Sig/Jordi Route PRN Reason Start Time Stop Time Status Last Admin Dose Admin Acetaminophen (Tylenol) 650 mg Q4H PRN ORAL fever 07/11/16 13:15 08/10/16 13:14 Al Hydroxide/Mg Hydroxide (Mylanta II) 30 ml Q6H PRN ORAL dyspepsia 07/11/16 13:15 08/10/16 13:14 Cefepime HCl/ Dextrose (Maxipime/D5W) 55 ml @ 110 mls/hr Q12HR@0400,1600 IV 07/11/16 16:00 07/18/16 15:59 07/13/16 15:56 Cyclobenzaprine HCl 5 mg 5 mg Q6H PRN ORAL Muscle Spasm 07/12/16 17:00 08/11/16 16:59 07/13/16 21:18 Dextrose (Dextrose 50%) STAT PRN IV Hypoglycemia 07/11/16 13:15 08/10/16 13:14 Heparin Sodium (Porcine) (Heparin 5000 units/ml) 5,000 units EVERY 12 HOURS SUBQ 07/11/16 21:00 08/10/16 20:59 07/13/16 21:15 Lorazepam (Ativan 2mg/ml 1ml) 0.5 mg Q4H PRN IV For Anxiety 07/11/16 13:15 07/18/16 13:14 Morphine Sulfate (Morphine Sulfate) 2 mg Q4H PRN IVP Moderate Pain (Pain Scale 4-6) 07/12/16 12:03 07/19/16 12:02 07/13/16 21:10 Morphine Sulfate (Morphine Sulfate) 4 mg Q3HR PRN IVP Severe Pain (Pain Scale 7-10) 07/12/16 12:30 07/19/16 12:29 07/13/16 16:04 Ondansetron HCl (Zofran) 4 mg Q6H PRN IVP Nausea & Vomiting 07/11/16 13:15 08/10/16 13:14 Polyethylene Glycol (Miralax) 17 gm HSPRN PRN ORAL Constipation 07/11/16 13:15 08/10/16 13:14 Vancomycin HCl 1 ea 1 ea DAILY PRN MISC Per rx protocol 07/11/16 13:15 08/10/16 13:14 Vancomycin HCl/ Dextrose (Vancomycin/D5W) 275 ml @ 183.333 mls/hr Q6HR IVPB 07/14/16 00:00 07/19/16 00:00 Zolpidem Tartrate (Ambien) 5 mg HSPRN PRN ORAL Insomnia 07/11/16 13:15 08/10/16 13:14 BERNY CONNER Jul 13, 2016 23:23
[2016-07-14] VITALS: BP 123/75
[2016-07-14] MEDS: Vancomycin 1.25 GM in D5W 275 ML IVPB SCH ×4 (00:08→19:21)
[2016-07-14] MEDS: Zolpidem 5mg tab ORAL PRN ×2 (00:15→22:42)
[2016-07-14] MEDS: Cefepime HCl 1 GM in D5W 55 ML IV SCH (03:32)
[2016-07-14 04:00] VITALS: BP 130/72
[2016-07-14] MEDS: Morphine Sulfate 4mg/ml Inj IVP PRN ×2 (06:47→17:06)
[2016-07-14 08:30] VITALS: BP 132/70
[2016-07-14] MEDS: Heparin 5000 units/ml inj SUBQ SCH ×2 (09:20→20:28)
--- NOTE | 2016-07-14 10:17 | Infectious Diseases Prog Note ---
Assessment/Plan Assessment/Plan A The patient is a 25-year-old male with left foot cellulitis/ left third toe wound infection Wnd Cx: MRSA MRI : early osteomyelitis cannot be completely ruled out. Afebrile Obesity PLAN: Cont vancomycin and DC cefepime d# 3 Monitor CBC. Monitor BMP. Monitor cultures ( blood). Bone scan : P Podiatry following Subjective Constitutional: Denies: anorexia, chills, drenching sweats, fatigue, fever, no symptoms, other Allergies: Coded Allergies: Crab (Verified Allergy, Severe, N/V, 07/10/16) Lobster (Verified Allergy, Severe, N/V, 07/10/16) SHRIMP (Verified Allergy, Severe, N/V, 07/10/16) Objective Vital Signs Last 24 Hour Vital Signs Date Time Temp Pulse Resp B/P Pulse Ox O2 Delivery O2 Flow Rate FiO2 07/14/16 08:30 98.1 75 19 132/70 97 Room Air 07/14/16 04:00 97.3 67 18 130/72 96 Room Air 07/14/16 00:00 96.3 61 18 123/75 99 Room Air 07/13/16 21:40 97.7 07/13/16 21:40 97.7 07/13/16 19:00 97.7 81 20 137/79 99 Room Air 07/13/16 16:34 97.7 07/13/16 16:00 97.9 82 20 135/71 98 Room Air 07/13/16 11:29 97.7 74 19 125/74 97 Room Air Height (Feet): 5 Height (Inches): 10.00 Weight (Pounds): 265 HEENT: atraumatic Respiratory/Chest: normal breath sounds Cardiovascular: regularly irregular Abdomen: soft, non tender Microbiology Date/Time Source Procedure Growth Status 07/12/16 12:30 Blood Blood Culture - Preliminary NO GROWTH AFTER 24 HOURS Resulted 07/12/16 12:20 Blood Blood Culture - Preliminary NO GROWTH AFTER 24 HOURS Resulted Current Medications Medications (Trade) Dose Ordered Sig/Jordi Route PRN Reason Start Time Stop Time Status Last Admin Dose Admin Acetaminophen (Tylenol) 650 mg Q4H PRN ORAL fever 07/11/16 13:15 08/10/16 13:14 Al Hydroxide/Mg Hydroxide (Mylanta II) 30 ml Q6H PRN ORAL dyspepsia 07/11/16 13:15 08/10/16 13:14 Cefepime HCl/ Dextrose (Maxipime/D5W) 55 ml @ 110 mls/hr Q12HR@0400,1600 IV 07/11/16 16:00 07/18/16 15:59 07/14/16 03:32 Cyclobenzaprine HCl 5 mg 5 mg Q6H PRN ORAL Muscle Spasm 07/12/16 17:00 08/11/16 16:59 07/13/16 21:18 Dextrose (Dextrose 50%) STAT PRN IV Hypoglycemia 07/11/16 13:15 08/10/16 13:14 Heparin Sodium (Porcine) (Heparin 5000 units/ml) 5,000 units EVERY 12 HOURS SUBQ 07/11/16 21:00 08/10/16 20:59 07/14/16 09:20 Lorazepam (Ativan 2mg/ml 1ml) 0.5 mg Q4H PRN IV For Anxiety 07/11/16 13:15 07/18/16 13:14 Morphine Sulfate (Morphine Sulfate) 2 mg Q4H PRN IVP Moderate Pain (Pain Scale 4-6) 07/12/16 12:03 07/19/16 12:02 07/13/16 21:10 Morphine Sulfate (Morphine Sulfate) 4 mg Q3HR PRN IVP Severe Pain (Pain Scale 7-10) 07/12/16 12:30 07/19/16 12:29 07/14/16 06:47 Ondansetron HCl (Zofran) 4 mg Q6H PRN IVP Nausea & Vomiting 07/11/16 13:15 08/10/16 13:14 Polyethylene Glycol (Miralax) 17 gm HSPRN PRN ORAL Constipation 07/11/16 13:15 08/10/16 13:14 Vancomycin HCl 1 ea 1 ea DAILY PRN MISC Per rx protocol 07/11/16 13:15 08/10/16 13:14 Vancomycin HCl/ Dextrose (Vancomycin/D5W) 275 ml @ 183.333 mls/hr Q6HR IVPB 07/14/16 00:00 07/19/16 00:00 07/14/16 05:30 Zolpidem Tartrate (Ambien) 5 mg HSPRN PRN ORAL Insomnia 07/11/16 13:15 08/10/16 13:14 3/16/17 00:15 DENIA ANTONY M.D. Jul 14, 2016 10:17
[2016-07-14 11:28] VITALS: BP 135/79
[2016-07-14] MEDS: Morphine Sulfate 2mg/ml Inj IVP PRN ×2 (12:27→20:26)
--- NOTE | 2016-07-14 14:04 | Diagnostic Imaging Report ---
Indication: Right third toe infection Technique: Heavy menstruation 24.8 mCi 99 technetium MDP. Flow, level, and static images obtained of the feet. Comparison: No comparison plain radiographs are available. Reference is made to an MRI of 07/12/2016 Findings: There is slightly increased flow and blood collected in the right lower extremity, particularly in the forefoot centrally. On the static images, there is a small focus of equivocally increased phalangeal activity corresponding to the location of the third fourth phalanx which is better appreciated on the plantar than the dorsal images. Impression: Increased low level activity diffusely through the right foot, more focally in the distal central foot, with equivocally increased phalangeal activity on the static images.. Findings are suspicious for acute osteomyelitis, probably of the third middle or distal phalanx, given stated clinical history and prior MRI findings
[2016-07-14] MEDS ORDERED: NS 550ML IV ONE (14:41)
[2016-07-14] MEDS ORDERED: Tubing IV Secondary IV ONE (14:41)
[2016-07-14 15:56] VITALS: BP 133/86
--- NOTE | 2016-07-14 16:44 | Pulmonology Progress Note ---
Assessment/Plan Problems: (1) Abscess of third toe, right Assessment/Plan improving s/p debridement MRI done, can't rule out early osteo wound care by podiatry can go home when ok with Podiatry Subjective ROS Limited/Unobtainable: No Interval Events: doing better Allergies: Coded Allergies: Crab (Verified Allergy, Severe, N/V, 07/10/16) Lobster (Verified Allergy, Severe, N/V, 07/10/16) SHRIMP (Verified Allergy, Severe, N/V, 07/10/16) Objective Last 24 Hour Vital Signs Date Time Temp Pulse Resp B/P Pulse Ox O2 Delivery O2 Flow Rate FiO2 07/14/16 15:56 98.1 84 20 133/86 95 Room Air 07/14/16 11:28 97.9 77 18 135/79 96 Room Air 07/14/16 08:30 98.1 75 19 132/70 97 Room Air 07/14/16 04:00 97.3 67 18 130/72 96 Room Air 07/14/16 00:00 96.3 61 18 123/75 99 Room Air 07/13/16 21:40 97.7 07/13/16 21:40 97.7 07/13/16 19:00 97.7 81 20 137/79 99 Room Air Intake and Output 07/13/16 07/14/16 19:00 07:00 Intake Total 845 ml 925.000 ml Output Total 500 ml Balance 345 ml 925.000 ml Intake Oral 520 ml 320 ml IV Total 325 ml 605.000 ml Output Urine Total 500 ml # Voids 4 Objective General Appearance: WD/WN, cachetic Lines, tubes and drains: peripheral, central line HEENT: normocephalic Neck: non-tender Respiratory/Chest: chest wall non-tender, lungs clear Cardiovascular/Chest: normal peripheral pulses, normal rate Abdomen: normal bowel sounds, non tender Genitourinary/Rectal: normal genital exam Extremities: normal range of motion 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 Microbiology Date/Time Source Procedure Growth Status 07/12/16 12:30 Blood Blood Culture - Preliminary NO GROWTH AFTER 24 HOURS Resulted 07/12/16 12:20 Blood Blood Culture - Preliminary NO GROWTH AFTER 24 HOURS Resulted Current Medications Medications (Trade) Dose Ordered Sig/Jordi Route PRN Reason Start Time Stop Time Status Last Admin Dose Admin Acetaminophen (Tylenol) 650 mg Q4H PRN ORAL fever 07/11/16 13:15 08/10/16 13:14 Al Hydroxide/Mg Hydroxide (Mylanta II) 30 ml Q6H PRN ORAL dyspepsia 07/11/16 13:15 08/10/16 13:14 Cyclobenzaprine HCl 5 mg 5 mg Q6H PRN ORAL Muscle Spasm 07/12/16 17:00 08/11/16 16:59 07/13/16 21:18 Dextrose (Dextrose 50%) STAT PRN IV Hypoglycemia 07/11/16 13:15 08/10/16 13:14 Heparin Sodium (Porcine) (Heparin 5000 units/ml) 5,000 units EVERY 12 HOURS SUBQ 07/11/16 21:00 08/10/16 20:59 07/14/16 09:20 Lorazepam (Ativan 2mg/ml 1ml) 0.5 mg Q4H PRN IV For Anxiety 07/11/16 13:15 07/18/16 13:14 Morphine Sulfate (Morphine Sulfate) 2 mg Q4H PRN IVP Moderate Pain (Pain Scale 4-6) 07/12/16 12:03 07/19/16 12:02 07/14/16 12:27 Morphine Sulfate (Morphine Sulfate) 4 mg Q3HR PRN IVP Severe Pain (Pain Scale 7-10) 07/12/16 12:30 07/19/16 12:29 07/14/16 06:47 Ondansetron HCl (Zofran) 4 mg Q6H PRN IVP Nausea & Vomiting 07/11/16 13:15 08/10/16 13:14 Polyethylene Glycol (Miralax) 17 gm HSPRN PRN ORAL Constipation 07/11/16 13:15 08/10/16 13:14 Vancomycin HCl (Vanco rx to dose) 1 ea DAILY PRN MISC Per rx protocol 07/11/16 13:15 08/10/16 13:14 Vancomycin HCl/ Dextrose (Vancomycin/D5W) 275 ml @ 183.333 mls/hr Q6HR IVPB 07/14/16 00:00 07/19/16 00:00 07/14/16 12:19 Zolpidem Tartrate (Ambien) 5 mg HSPRN PRN ORAL Insomnia 07/11/16 13:15 08/10/16 13:14 07/14/16 00:15 BERNY CONNER Jul 14, 2016 16:44
[2016-07-14 19:00] VITALS: BP 139/78
--- NOTE | 2016-07-14 19:54 | Podiatric Progress Note ---
Assessment/Plan Patient Ciaran Barrios is a 25 year old male who was admitted on Jul 11, 2016 at 10:25 with right foot 3rd toe abscess Problems: Assessment/Plan ASSESSMENT: - Right foot 3rd toe abscess. Bone scan is suspicious for acute osteo. Clinically improving since I&D. No purulent drainage or malodor noted. Edema and pain is improving - Pain. Well controlled PLAN: - Continue antibiotics per infectious disease specialist - Continue daily dressing changes - Elevate leg - Okay to bear weight on right heel - Continue current regimen for pain management. Advised patient to decrease frequency if pain is improving Subjective Reason for consult Right foot abscess Allergies: Coded Allergies: Crab (Verified Allergy, Severe, N/V, 07/10/16) Lobster (Verified Allergy, Severe, N/V, 07/10/16) SHRIMP (Verified Allergy, Severe, N/V, 07/10/16) Subjective Patient states pain is improving. No nausea, vomiting, fevers, or chills. Objective Exam Last 24 Hour Vital Signs Date Time Temp Pulse Resp B/P Pulse Ox O2 Delivery O2 Flow Rate FiO2 07/14/16 15:56 98.1 84 20 133/86 95 Room Air 07/14/16 11:28 97.9 77 18 135/79 96 Room Air 07/14/16 08:30 98.1 75 19 132/70 97 Room Air 07/14/16 04:00 97.3 67 18 130/72 96 Room Air 07/14/16 00:00 96.3 61 18 123/75 99 Room Air 07/13/16 21:40 97.7 07/13/16 21:40 97.7 Microbiology Date/Time Source Procedure Growth Status 07/12/16 12:30 Blood Blood Culture - Preliminary NO GROWTH AFTER 24 HOURS Resulted 07/11/16 08:30 Wound Gram Stain - Final Complete 07/11/16 08:30 Wound Culture - Final Staphylococcus Aureus - Mrsa Complete Exam Narrative Right foot 3rd toe with no purulence noted today. Serosanguineous drainage noted. No malodor noted. Decreased edema. Pain with palpation is improving IMAGING: Procedure: NM Bone Scan 3-Phase Indication: Right third toe infection Technique: Heavy menstruation 24.8 mCi 99 technetium MDP. Flow, level, and static images obtained of the feet. Comparison: No comparison plain radiographs are available. Reference is made to an MRI of 07/12/2016 Findings: There is slightly increased flow and blood collected in the right lower extremity, particularly in the forefoot centrally. On the static images, there is a small focus of equivocally increased phalangeal activity corresponding to the location of the third fourth phalanx which is better appreciated on the plantar than the dorsal images. Impression: Increased low level activity diffusely through the right foot, more focally in the distal central foot, with equivocally increased phalangeal activity on the static images. Findings are suspicious for acute osteomyelitis, probably of the third middle or distal phalanx, given stated clinical history and prior MRI findings Jameel Samano DPM Jul 14, 2016 19:54
[2016-07-14] MEDS: Cyclobenzaprine 10mg Tab ORAL PRN (22:43)
[2016-07-15] VITALS: BP 131/71
[2016-07-15] MEDS: Vancomycin 1.25 GM in D5W 275 ML IVPB SCH ×4 (00:55→18:10)
[2016-07-15 04:00] VITALS: BP 119/71
[2016-07-15] MEDS: Morphine Sulfate 4mg/ml Inj IVP PRN ×2 (06:28→10:41)
[2016-07-15 07:24] LABS: BASOPHILS % (AUTO) 1.8 % (0.0-2.0); EOSINOPHILS % (AUTO) 6.1 % (0.0-3.0); LYMPHOCYTES % (AUTO) 23.4 % (20.0-45.0); MEAN CORPUSCULAR HEMOGLOBIN 29.3 PG (27.0-31.0); MEAN CORPUSCULAR HGB CONC 32.4 G/DL (32.0-36.0); MEAN CORPUSCULAR VOLUME 90 FL (80-99); MEAN PLATELET VOLUME 6.5 FL (6.5-10.1); NEUTROPHILS % (AUTO) 60.8 % (45.0-75.0); PLATELET COUNT 268 K/UL (150-450); RED BLOOD COUNT 5.34 M/UL (4.70-6.10); RED CELL DISTRIBUTION WIDTH 11.1 % (11.6-14.8); WHITE BLOOD COUNT 8.2 K/UL (4.8-10.8)
[2016-07-15 07:41] LABS: ALANINE AMINOTRANSFERASE 73 U/L (3-41); ALBUMIN/GLOBULIN RATIO 1.1 (1.0-2.7); ANION GAP 17 (5-15); ASPARTATE AMINO TRANSFERASE 42 U/L (5-40); CALCIUM 9.7 mg/dL (8.6-10.2); CARBON DIOXIDE 25 mEQ/L (20-30); CHLORIDE 94 mEQ/L (98-107); CREATININE 0.8 mg/dL (0.7-1.2); GLOMERULAR FILTRATION RATE > 60 mL/min (>60); HEMOLYSIS 2; MAGNESIUM 1.9 mg/dL (1.7-2.5); PHOSPHORUS 4.1 mg/dL (2.5-4.8); POTASSIUM 4.1 mEQ/L (3.4-4.9); SODIUM 136 mEQ/L (135-145); TOTAL PROTEIN 7.4 g/dL (6.6-8.7)
[2016-07-15 08:33] VITALS: BP 127/65
--- NOTE | 2016-07-15 08:34 | Pulmonology Progress Note ---
Assessment/Plan Assessment/Plan ASSESSMENT R foot cellulitis ( R 3r toe) R 3 rd toe abscess s/p I&D R 3 rd toe likely osteomyelitis obesity PLAN OF CARE MS floor abx ID follows blood cx preliminary negative wound cx + MRSA Venous Duplex BLE negative MRI could not exclude early OM bone scan highly suspicious fro acute OM will need total of 6 weeks of abx as per ID PICC line prior podiatry follows wound care as per podiatry recommendations weight bear as tolerated, DVT prophylaxis casework supervisor to arrange for HH fro IV abx case discussed and evaluated by supervising physician Subjective Allergies: Coded Allergies: Crab (Verified Allergy, Severe, N/V, 07/10/16) Lobster (Verified Allergy, Severe, N/V, 07/10/16) SHRIMP (Verified Allergy, Severe, N/V, 07/10/16) Subjective denies pain, bone scan + acute OM afebrile, no leucocytosis Objective Last 24 Hour Vital Signs Date Time Temp Pulse Resp B/P Pulse Ox O2 Delivery O2 Flow Rate FiO2 07/15/16 06:56 97.7 07/15/16 04:00 98.8 86 20 119/71 96 Room Air 07/15/16 00:00 97.7 69 18 131/71 96 Room Air 07/14/16 23:42 98.1 07/14/16 20:56 98.1 07/14/16 19:00 98.1 87 20 139/78 97 Room Air 07/14/16 15:56 98.1 84 20 133/86 95 Room Air 07/14/16 11:28 97.9 77 18 135/79 96 Room Air 07/14/16 08:30 98.1 75 19 132/70 97 Room Air Intake and Output 07/14/16 07/15/16 19:00 07:00 Intake Total 620 ml 845 ml Output Total 800 ml 1100 ml Balance -180 ml -255 ml Intake Oral 620 ml 570 ml IV Total 275 ml Output Urine Total 800 ml 1100 ml # Voids 4 General Appearance: no acute distress, other - A/A/O x 3 obese AA male HEENT: normocephalic, atraumatic, anicteric, mucous membranes moist Respiratory/Chest: lungs clear, no respiratory distress, no accessory muscle use Cardiovascular: normal peripheral pulses, normal rate, regular rhythm, no JVD Abdomen: normal bowel sounds, soft, non tender - obese Genitourinary: normal external genitalia Extremities: no edema Skin: other - # rd toe with dressing C/D/I, mild edema, erythema, TTP Neurologic/Psychiatric: no motor/sensory deficits, abnormal gait - with cane , alert, oriented x 3, responsive Musculoskeletal: normal muscle bulk Microbiology Date/Time Source Procedure Growth Status 07/12/16 12:30 Blood Blood Culture - Preliminary NO GROWTH AFTER 48 HOURS Resulted 07/12/16 12:20 Blood Blood Culture - Preliminary NO GROWTH AFTER 48 HOURS Resulted Laboratory Tests 07/14/16 23:20: Vancomycin Level Trough 19.6H 07/15/16 05:15: White Blood Count 8.2, Red Blood Count 5.34, Hemoglobin 15.7, Hematocrit 48.3, Mean Corpuscular Volume 90, Mean Corpuscular Hemoglobin 29.3, Mean Corpuscular Hemoglobin Concent 32.4, Red Cell Distribution Width 11.1L, Platelet Count 268, Mean Platelet Volume 6.5, Neutrophils (%) (Auto) 60.8, Lymphocytes (%) (Auto) 23.4, Monocytes (%) (Auto) 8.0, Eosinophils (%) (Auto) 6.1H, Basophils (%) (Auto ) 1.8, Sodium Level 136, Potassium Level 4.1, Chloride Level 94L, Carbon Dioxide Level 25, Anion Gap 17H, Blood Urea Nitrogen 12, Creatinine 0.8, Estimat Glomerular Filtration Rate > 60, Glucose Level 111H, Calcium Level 9.7, Phosphorus Level 4.1, Magnesium Level 1.9, Total Bilirubin 0.3, Aspartate Amino Transf (AST/SGOT) 42H, Alanine Aminotransferase (ALT/SGPT) 73H, Alkaline Phosphatase 88, Total Protein 7.4, Albumin 3.9, Globulin 3.5, Albumin/Globulin Ratio 1.1 Current Medications Medications (Trade) Dose Ordered Sig/Jordi Route PRN Reason Start Time Stop Time Status Last Admin Dose Admin Acetaminophen (Tylenol) 650 mg Q4H PRN ORAL fever 07/11/16 13:15 08/10/16 13:14 Al Hydroxide/Mg Hydroxide (Mylanta II) 30 ml Q6H PRN ORAL dyspepsia 07/11/16 13:15 08/10/16 13:14 Cyclobenzaprine HCl 5 mg 5 mg Q6H PRN ORAL Muscle Spasm 07/12/16 17:00 08/11/16 16:59 07/14/16 22:43 Dextrose (Dextrose 50%) STAT PRN IV Hypoglycemia 07/11/16 13:15 08/10/16 13:14 Heparin Sodium (Porcine) (Heparin 5000 units/ml) 5,000 units EVERY 12 HOURS SUBQ 07/11/16 21:00 08/10/16 20:59 07/14/16 20:28 Lorazepam (Ativan 2mg/ml 1ml) 0.5 mg Q4H PRN IV For Anxiety 07/11/16 13:15 07/18/16 13:14 Morphine Sulfate (Morphine Sulfate) 2 mg Q4H PRN IVP Moderate Pain (Pain Scale 4-6) 07/12/16 12:03 07/19/16 12:02 07/14/16 20:26 Morphine Sulfate (Morphine Sulfate) 4 mg Q3HR PRN IVP Severe Pain (Pain Scale 7-10) 07/12/16 12:30 07/19/16 12:29 07/15/16 06:28 Ondansetron HCl (Zofran) 4 mg Q6H PRN IVP Nausea & Vomiting 07/11/16 13:15 08/10/16 13:14 Polyethylene Glycol (Miralax) 17 gm HSPRN PRN ORAL Constipation 07/11/16 13:15 08/10/16 13:14 Vancomycin HCl (Vanco rx to dose) 1 ea DAILY PRN MISC Per rx protocol 07/11/16 13:15 08/10/16 13:14 Vancomycin HCl/ Dextrose (Vancomycin/D5W) 275 ml @ 183.333 mls/hr Q6HR IVPB 07/14/16 00:00 07/19/16 00:00 07/15/16 05:16 Zolpidem Tartrate (Ambien) 5 mg HSPRN PRN ORAL Insomnia 07/11/16 13:15 08/10/16 13:14 07/14/16 22:42 Lexii Buchanan NP ([facility]) Jul 15, 2016 08:34
[2016-07-15] MEDS: Heparin 5000 units/ml inj SUBQ SCH ×2 (09:00→21:14)
--- NOTE | 2016-07-15 09:53 | Infectious Diseases Prog Note ---
Assessment/Plan Assessment/Plan ASSESSMENT: 25-year-old male with: Right third toe abscess / osteomyelitis / cellulitis - WCx MRSA ( vanco BETHEL <= 0.5 ) Bone scan: suspicious for acute osteomyelitis, probably of the third middle or distal phalanx MRI : early osteomyelitis cannot be completely ruled out. Afebrile without leukocytosis Obesity No ABX allergies Full Code PLAN: DC planning for IV vancomycin ( alt: daptomycin 6mg/kg daily or teflaro or zyvox 600mg q12 ) d# 4 / 42 ( 07/14 SP cefepime d# 3 ) PICC line weekly CBC, CMP, ESR, CRP while on IV ABX wound care d/w [employer] Buchanan Subjective Allergies: Coded Allergies: Crab (Verified Allergy, Severe, N/V, 07/10/16) Lobster (Verified Allergy, Severe, N/V, 07/10/16) SHRIMP (Verified Allergy, Severe, N/V, 07/10/16) Subjective remains afebrile BS OM Objective Vital Signs Last 24 Hour Vital Signs Date Time Temp Pulse Resp B/P Pulse Ox O2 Delivery O2 Flow Rate FiO2 07/15/16 08:33 97.7 72 19 127/65 97 Room Air 07/15/16 06:56 97.7 07/15/16 04:00 98.8 86 20 119/71 96 Room Air 07/15/16 00:00 97.7 69 18 131/71 96 Room Air 07/14/16 23:42 98.1 07/14/16 20:56 98.1 07/14/16 19:00 98.1 87 20 139/78 97 Room Air 07/14/16 15:56 98.1 84 20 133/86 95 Room Air 07/14/16 11:28 97.9 77 18 135/79 96 Room Air Height (Feet): 5 Height (Inches): 10.00 Weight (Pounds): 265 General Appearance: no acute distress Respiratory/Chest: no respiratory distress Cardiovascular: normal rate, regular rhythm Abdomen: normal bowel sounds, soft, non tender, non distended Extremities: other - foot bandaged Microbiology Date/Time Source Procedure Growth Status 07/12/16 12:30 Blood Blood Culture - Preliminary NO GROWTH AFTER 48 HOURS Resulted 07/12/16 12:20 Blood Blood Culture - Preliminary NO GROWTH AFTER 48 HOURS Resulted Laboratory Tests Test 07/14/16 23:20 07/15/16 05:15 Vancomycin Level Trough 19.6 ug/mL (5.0-12.0) H White Blood Count 8.2 K/UL (4.8-10.8) Red Blood Count 5.34 M/UL (4.70-6.10) Hemoglobin 15.7 G/DL (14.2-18.0) Hematocrit 48.3 % (42.0-52.0) Mean Corpuscular Volume 90 FL (80-99) Mean Corpuscular Hemoglobin 29.3 PG (27.0-31.0) Mean Corpuscular Hemoglobin Concent 32.4 G/DL (32.0-36.0) Red Cell Distribution Width 11.1 % (11.6-14.8) L Platelet Count 268 K/UL (150-450) Mean Platelet Volume 6.5 FL (6.5-10.1) Neutrophils (%) (Auto) 60.8 % (45.0-75.0) Lymphocytes (%) (Auto) 23.4 % (20.0-45.0) Monocytes (%) (Auto) 8.0 % (1.0-10.0) Eosinophils (%) (Auto) 6.1 % (0.0-3.0) H Basophils (%) (Auto) 1.8 % (0.0-2.0) Sodium Level 136 mEQ/L (135-145) Potassium Level 4.1 mEQ/L (3.4-4.9) Chloride Level 94 mEQ/L (98-107) L Carbon Dioxide Level 25 mEQ/L (20-30) Anion Gap 17 (5-15) H Blood Urea Nitrogen 12 mg/dL (7-23) Creatinine 0.8 mg/dL (0.7-1.2) Estimat Glomerular Filtration Rate > 60 mL/min (>60) Glucose Level 111 mg/dL (74-106) H Calcium Level 9.7 mg/dL (8.6-10.2) Phosphorus Level 4.1 mg/dL (2.5-4.8) Magnesium Level 1.9 mg/dL (1.7-2.5) Total Bilirubin 0.3 mg/dL (0.0-1.2) Aspartate Amino Transf (AST/SGOT) 42 U/L (5-40) H Alanine Aminotransferase (ALT/SGPT) 73 U/L (3-41) H Alkaline Phosphatase 88 U/L (40-129) Total Protein 7.4 g/dL (6.6-8.7) Albumin 3.9 g/dL (3.5-5.2) Globulin 3.5 g/dL Albumin/Globulin Ratio 1.1 (1.0-2.7) Current Medications Medications (Trade) Dose Ordered Sig/Jordi Route PRN Reason Start Time Stop Time Status Last Admin Dose Admin Acetaminophen (Tylenol) 650 mg Q4H PRN ORAL fever 07/11/16 13:15 08/10/16 13:14 Al Hydroxide/Mg Hydroxide (Mylanta II) 30 ml Q6H PRN ORAL dyspepsia 07/11/16 13:15 08/10/16 13:14 Cyclobenzaprine HCl 5 mg 5 mg Q6H PRN ORAL Muscle Spasm 07/12/16 17:00 08/11/16 16:59 07/14/16 22:43 Dextrose (Dextrose 50%) STAT PRN IV Hypoglycemia 07/11/16 13:15 08/10/16 13:14 Heparin Sodium (Porcine) (Heparin 5000 units/ml) 5,000 units EVERY 12 HOURS SUBQ 07/11/16 21:00 08/10/16 20:59 07/14/16 20:28 Heparin Sodium/ Sodium Chloride (Heparin 2000 units/Ns 1000ml premix) 2,000 unit ONCE ONCE INJ 07/15/16 09:00 07/15/16 09:01 UNV Lidocaine HCl (Xylocaine 1% 30ml) 30 ml ONCE ONCE INJ 07/15/16 09:00 07/15/16 09:01 UNV Lorazepam (Ativan 2mg/ml 1ml) 0.5 mg Q4H PRN IV For Anxiety 07/11/16 13:15 07/18/16 13:14 Morphine Sulfate (Morphine Sulfate) 2 mg Q4H PRN IVP Moderate Pain (Pain Scale 4-6) 07/12/16 12:03 07/19/16 12:02 07/14/16 20:26 Morphine Sulfate (Morphine Sulfate) 4 mg Q3HR PRN IVP Severe Pain (Pain Scale 7-10) 07/12/16 12:30 07/19/16 12:29 07/15/16 06:28 Ondansetron HCl (Zofran) 4 mg Q6H PRN IVP Nausea & Vomiting 07/11/16 13:15 08/10/16 13:14 Polyethylene Glycol (Miralax) 17 gm HSPRN PRN ORAL Constipation 07/11/16 13:15 08/10/16 13:14 Vancomycin HCl (Vanco rx to dose) 1 ea DAILY PRN MISC Per rx protocol 07/11/16 13:15 08/10/16 13:14 Vancomycin HCl/ Dextrose (Vancomycin/D5W) 275 ml @ 183.333 mls/hr Q6HR IVPB 07/14/16 00:00 07/19/16 00:00 07/15/16 05:16 Zolpidem Tartrate (Ambien) 5 mg HSPRN PRN ORAL Insomnia 07/11/16 13:15 08/10/16 13:14 07/14/16 22:42 JASMIN CAMPBELL 17, 2017 09:53
[2016-07-15 11:46] VITALS: BP 142/90
[2016-07-15] MEDS ORDERED: Lidocaine 1% Plain 30 ml INJ ONE (13:00)
[2016-07-15] MEDS ORDERED: Heparin 2000 units/Ns 1000ml INJ ONE (13:00)
[2016-07-15 15:49] VITALS: BP 133/77
[2016-07-15] MEDS: Morphine Sulfate 2mg/ml Inj IVP PRN (18:21)
--- NOTE | 2016-07-15 19:17 | Podiatric Progress Note ---
Assessment/Plan Patient Ciaran Barrios is a 25 year old male who was admitted on Jul 11, 2016 at 10:25 with right 3rd toe abscess Problems: (1) Abscess of third toe, right (2) Cellulitis and abscess of foot Assessment/Plan - Clinically improving right 3rd toe abscess. Purulent drainage has ceased. The edema and pain is improving. He remains afebrile and without leukocytosis. Patient got PICC placed today. Okay to discharge from podiatry standpoint. - Continue performing daily dressing changes. Patient states he is able to perform the dressing changing himself. Instructed patient on specifics of how to perform daily dressing changes - Weight bearing as tolerated - Continue IV antibiotics per infectious disease specialist recommendations Subjective Reason for consult Right foot 3rd toe abscess Allergies: Coded Allergies: Crab (Verified Allergy, Severe, N/V, 07/10/16) Lobster (Verified Allergy, Severe, N/V, 07/10/16) SHRIMP (Verified Allergy, Severe, N/V, 07/10/16) Subjective Patient states pain has improved. He is able to walk with minimal pain. No nausea, vomiting, fevers or chills. Objective Exam Last 24 Hour Vital Signs Date Time Temp Pulse Resp B/P Pulse Ox O2 Delivery O2 Flow Rate FiO2 07/15/16 15:49 98.2 88 19 133/77 97 Room Air 07/15/16 11:46 97.7 81 18 142/90 100 Room Air 07/15/16 08:33 97.7 72 19 127/65 97 Room Air 07/15/16 06:56 97.7 07/15/16 04:00 98.8 86 20 119/71 96 Room Air 07/15/16 00:00 97.7 69 18 131/71 96 Room Air 07/14/16 23:42 98.1 07/14/16 20:56 98.1 Laboratory Tests Test 07/14/16 23:20 07/15/16 05:15 Vancomycin Level Trough 19.6 ug/mL (5.0-12.0) H White Blood Count 8.2 K/UL (4.8-10.8) Red Blood Count 5.34 M/UL (4.70-6.10) Hemoglobin 15.7 G/DL (14.2-18.0) Hematocrit 48.3 % (42.0-52.0) Mean Corpuscular Volume 90 FL (80-99) Mean Corpuscular Hemoglobin 29.3 PG (27.0-31.0) Mean Corpuscular Hemoglobin Concent 32.4 G/DL (32.0-36.0) Red Cell Distribution Width 11.1 % (11.6-14.8) L Platelet Count 268 K/UL (150-450) Mean Platelet Volume 6.5 FL (6.5-10.1) Neutrophils (%) (Auto) 60.8 % (45.0-75.0) Lymphocytes (%) (Auto) 23.4 % (20.0-45.0) Monocytes (%) (Auto) 8.0 % (1.0-10.0) Eosinophils (%) (Auto) 6.1 % (0.0-3.0) H Basophils (%) (Auto) 1.8 % (0.0-2.0) Sodium Level 136 mEQ/L (135-145) Potassium Level 4.1 mEQ/L (3.4-4.9) Chloride Level 94 mEQ/L (98-107) L Carbon Dioxide Level 25 mEQ/L (20-30) Anion Gap 17 (5-15) H Blood Urea Nitrogen 12 mg/dL (7-23) Creatinine 0.8 mg/dL (0.7-1.2) Estimat Glomerular Filtration Rate > 60 mL/min (>60) Glucose Level 111 mg/dL (74-106) H Calcium Level 9.7 mg/dL (8.6-10.2) Phosphorus Level 4.1 mg/dL (2.5-4.8) Magnesium Level 1.9 mg/dL (1.7-2.5) Total Bilirubin 0.3 mg/dL (0.0-1.2) Aspartate Amino Transf (AST/SGOT) 42 U/L (5-40) H Alanine Aminotransferase (ALT/SGPT) 73 U/L (3-41) H Alkaline Phosphatase 88 U/L (40-129) Total Protein 7.4 g/dL (6.6-8.7) Albumin 3.9 g/dL (3.5-5.2) Globulin 3.5 g/dL Albumin/Globulin Ratio 1.1 (1.0-2.7) Microbiology Date/Time Source Procedure Growth Status 07/12/16 12:30 Blood Blood Culture - Preliminary NO GROWTH AFTER 48 HOURS Resulted 07/11/16 08:30 Wound Gram Stain - Final Complete 07/11/16 08:30 Wound Culture - Final Staphylococcus Aureus - Mrsa Complete Exam Narrative Right foot 3rd toe with decreased edema. No purulence expressed with palpation of the toe. No malodor present. Pain with palpation has improved Jameel Samano DPM Jul 15, 2016 19:17
[2016-07-15 20:00] VITALS: BP 123/69
[2016-07-15] MEDS: Zolpidem 5mg tab ORAL PRN (22:18)
[2016-07-16] VITALS: BP 121/70
[2016-07-16] MEDS: Vancomycin 1.25 GM in D5W 275 ML IVPB SCH ×4 (00:30→18:22)
[2016-07-16] MEDS: Cyclobenzaprine 10mg Tab ORAL PRN (00:45)
[2016-07-16 04:00] VITALS: BP 124/73
[2016-07-16 07:28] LABS: EOSINOPHILS % (AUTO) 5.9 % (0.0-3.0); LYMPHOCYTES % (AUTO) 20.1 % (20.0-45.0); MEAN CORPUSCULAR HGB CONC 33.9 G/DL (32.0-36.0); MEAN CORPUSCULAR VOLUME 89 FL (80-99); MEAN PLATELET VOLUME 5.9 FL (6.5-10.1); MONOCYTES % (AUTO) 9.1 % (1.0-10.0); NEUTROPHILS % (AUTO) 63.9 % (45.0-75.0); PLATELET COUNT 283 K/UL (150-450); RED BLOOD COUNT 5.21 M/UL (4.70-6.10); RED CELL DISTRIBUTION WIDTH 11.4 % (11.6-14.8); WHITE BLOOD COUNT 7.7 K/UL (4.8-10.8)
[2016-07-16 07:29] LABS: ANION GAP 15 (5-15); CALCIUM 9.8 mg/dL (8.6-10.2); CARBON DIOXIDE 26 mEQ/L (20-30); CHLORIDE 95 mEQ/L (98-107); CREATININE 0.8 mg/dL (0.7-1.2); GLOMERULAR FILTRATION RATE > 60 mL/min (>60); HEMOLYSIS 1; SODIUM 136 mEQ/L (135-145)
[2016-07-16 08:14] VITALS: BP 139/73
--- NOTE | 2016-07-16 10:28 | Podiatric Progress Note ---
Assessment/Plan Patient Ciaran Barrios is a 25 year old male who was admitted on Jul 11, 2016 at 10:25 with right 3rd toe abscess Problems: (1) Abscess of third toe, right (2) Right foot pain Assessment/Plan - Okay to discharge from podiatry standpoint. Purulent drainage has ceased. Edema and pain has improved. Minimal serosanguineous drainage - Continue IV antibiotics per infectious disease recommendations - Continue daily dressing changes Subjective Reason for consult Right 3rd toe abscess Allergies: Coded Allergies: Crab (Verified Allergy, Severe, N/V, 07/10/16) Lobster (Verified Allergy, Severe, N/V, 07/10/16) SHRIMP (Verified Allergy, Severe, N/V, 07/10/16) Subjective Patient is doing better. Able to ambulate with minimal pain. No nausea, vomiting , fevers, or chills Objective Exam Last 24 Hour Vital Signs Date Time Temp Pulse Resp B/P Pulse Ox O2 Delivery O2 Flow Rate FiO2 07/16/16 08:14 97.9 83 20 139/73 97 Room Air 07/16/16 04:00 97.7 71 17 124/73 96 Room Air 07/16/16 00:00 97.5 69 17 121/70 97 Room Air 07/15/16 20:00 97.7 90 18 123/69 95 Room Air 07/15/16 18:51 98.2 07/15/16 15:49 98.2 88 19 133/77 97 Room Air 07/15/16 11:46 97.7 81 18 142/90 100 Room Air Laboratory Tests Test 07/16/16 06:00 White Blood Count 7.7 K/UL (4.8-10.8) Red Blood Count 5.21 M/UL (4.70-6.10) Hemoglobin 15.6 G/DL (14.2-18.0) Hematocrit 46.1 % (42.0-52.0) Mean Corpuscular Volume 89 FL (80-99) Mean Corpuscular Hemoglobin 30.0 PG (27.0-31.0) Mean Corpuscular Hemoglobin Concent 33.9 G/DL (32.0-36.0) Red Cell Distribution Width 11.4 % (11.6-14.8) L Platelet Count 283 K/UL (150-450) Mean Platelet Volume 5.9 FL (6.5-10.1) L Neutrophils (%) (Auto) 63.9 % (45.0-75.0) Lymphocytes (%) (Auto) 20.1 % (20.0-45.0) Monocytes (%) (Auto) 9.1 % (1.0-10.0) Eosinophils (%) (Auto) 5.9 % (0.0-3.0) H Basophils (%) (Auto) 1.0 % (0.0-2.0) Sodium Level 136 mEQ/L (135-145) Potassium Level 4.0 mEQ/L (3.4-4.9) Chloride Level 95 mEQ/L (98-107) L Carbon Dioxide Level 26 mEQ/L (20-30) Anion Gap 15 (5-15) Blood Urea Nitrogen 13 mg/dL (7-23) Creatinine 0.8 mg/dL (0.7-1.2) Estimat Glomerular Filtration Rate > 60 mL/min (>60) Glucose Level 103 mg/dL (74-106) Calcium Level 9.8 mg/dL (8.6-10.2) Microbiology Date/Time Source Procedure Growth Status 07/12/16 12:30 Blood Blood Culture - Preliminary NO GROWTH AFTER 48 HOURS Resulted 07/11/16 08:30 Wound Gram Stain - Final Complete 07/11/16 08:30 Wound Culture - Final Staphylococcus Aureus - Mrsa Complete Exam Narrative Minimal drainage. No purulence or malodor. Edema and pain with palpation is improving Jameel Samano DPM Jul 16, 2016 10:28
--- NOTE | 2016-07-16 10:31 | Infectious Diseases Prog Note ---
Assessment/Plan Assessment/Plan ASSESSMENT: 25-year-old male with: Right third toe abscess / osteomyelitis / cellulitis - WCx MRSA ( vanco BETHEL <= 0.5 ) Bone scan: suspicious for acute osteomyelitis, probably of the third middle or distal phalanx MRI : early osteomyelitis cannot be completely ruled out. Afebrile without leukocytosis Obesity No ABX allergies Full Code PLAN: DC planning for IV vancomycin ( alt: daptomycin 6mg/kg daily or teflaro 600mg q12 ) d# 5 / 42 ( 07/14 SP cefepime d# 3 ) weekly CBC, CMP, ESR, CRP while on IV ABX wound care d/w [employer] Buchanan Subjective Allergies: Coded Allergies: Crab (Verified Allergy, Severe, N/V, 07/10/16) Lobster (Verified Allergy, Severe, N/V, 07/10/16) SHRIMP (Verified Allergy, Severe, N/V, 07/10/16) Subjective remains afebrile DC planning ongoing Objective Vital Signs Last 24 Hour Vital Signs Date Time Temp Pulse Resp B/P Pulse Ox O2 Delivery O2 Flow Rate FiO2 07/16/16 08:14 97.9 83 20 139/73 97 Room Air 07/16/16 04:00 97.7 71 17 124/73 96 Room Air 07/16/16 00:00 97.5 69 17 121/70 97 Room Air 07/15/16 20:00 97.7 90 18 123/69 95 Room Air 07/15/16 18:51 98.2 07/15/16 15:49 98.2 88 19 133/77 97 Room Air 07/15/16 11:46 97.7 81 18 142/90 100 Room Air Height (Feet): 5 Height (Inches): 10.00 Weight (Pounds): 265 General Appearance: no acute distress Respiratory/Chest: no respiratory distress Cardiovascular: normal rate, regular rhythm Abdomen: normal bowel sounds, soft, non tender, non distended Extremities: other - foot bandaged Laboratory Tests Test 07/16/16 06:00 White Blood Count 7.7 K/UL (4.8-10.8) Red Blood Count 5.21 M/UL (4.70-6.10) Hemoglobin 15.6 G/DL (14.2-18.0) Hematocrit 46.1 % (42.0-52.0) Mean Corpuscular Volume 89 FL (80-99) Mean Corpuscular Hemoglobin 30.0 PG (27.0-31.0) Mean Corpuscular Hemoglobin Concent 33.9 G/DL (32.0-36.0) Red Cell Distribution Width 11.4 % (11.6-14.8) L Platelet Count 283 K/UL (150-450) Mean Platelet Volume 5.9 FL (6.5-10.1) L Neutrophils (%) (Auto) 63.9 % (45.0-75.0) Lymphocytes (%) (Auto) 20.1 % (20.0-45.0) Monocytes (%) (Auto) 9.1 % (1.0-10.0) Eosinophils (%) (Auto) 5.9 % (0.0-3.0) H Basophils (%) (Auto) 1.0 % (0.0-2.0) Sodium Level 136 mEQ/L (135-145) Potassium Level 4.0 mEQ/L (3.4-4.9) Chloride Level 95 mEQ/L (98-107) L Carbon Dioxide Level 26 mEQ/L (20-30) Anion Gap 15 (5-15) Blood Urea Nitrogen 13 mg/dL (7-23) Creatinine 0.8 mg/dL (0.7-1.2) Estimat Glomerular Filtration Rate > 60 mL/min (>60) Glucose Level 103 mg/dL (74-106) Calcium Level 9.8 mg/dL (8.6-10.2) Current Medications Medications (Trade) Dose Ordered Sig/Jordi Route PRN Reason Start Time Stop Time Status Last Admin Dose Admin Acetaminophen (Tylenol) 650 mg Q4H PRN ORAL fever 07/11/16 13:15 08/10/16 13:14 Al Hydroxide/Mg Hydroxide (Mylanta II) 30 ml Q6H PRN ORAL dyspepsia 07/11/16 13:15 08/10/16 13:14 Cyclobenzaprine HCl 5 mg 5 mg Q6H PRN ORAL Muscle Spasm 07/12/16 17:00 08/11/16 16:59 07/16/16 00:45 Dextrose (Dextrose 50%) STAT PRN IV Hypoglycemia 07/11/16 13:15 08/10/16 13:14 Heparin Sodium (Porcine) (Heparin 5000 units/ml) 5,000 units EVERY 12 HOURS SUBQ 07/11/16 21:00 08/10/16 20:59 07/15/16 21:14 Lorazepam (Ativan 2mg/ml 1ml) 0.5 mg Q4H PRN IV For Anxiety 07/11/16 13:15 07/18/16 13:14 Morphine Sulfate (Morphine Sulfate) 2 mg Q4H PRN IVP Moderate Pain (Pain Scale 4-6) 07/12/16 12:03 07/19/16 12:02 07/15/16 18:21 Morphine Sulfate (Morphine Sulfate) 4 mg Q3HR PRN IVP Severe Pain (Pain Scale 7-10) 07/12/16 12:30 07/19/16 12:29 07/15/16 10:41 Ondansetron HCl (Zofran) 4 mg Q6H PRN IVP Nausea & Vomiting 07/11/16 13:15 08/10/16 13:14 Polyethylene Glycol (Miralax) 17 gm HSPRN PRN ORAL Constipation 07/11/16 13:15 08/10/16 13:14 Vancomycin HCl (Vanco rx to dose) 1 ea DAILY PRN MISC Per rx protocol 07/11/16 13:15 08/10/16 13:14 Vancomycin HCl/ Dextrose (Vancomycin/D5W) 275 ml @ 183.333 mls/hr Q6HR IVPB 07/14/16 00:00 07/19/16 00:00 07/16/16 06:03 Zolpidem Tartrate (Ambien) 5 mg HSPRN PRN ORAL Insomnia 07/11/16 13:15 08/10/16 13:14 07/15/16 22:18 JASMIN CAMPBELL 18, 2017 10:31
[2016-07-16] MEDS: Heparin 5000 units/ml inj SUBQ SCH ×2 (10:54→21:00)
[2016-07-16 12:04] VITALS: BP 139/86
--- NOTE | 2016-07-16 13:50 | Pulmonology Progress Note ---
Assessment/Plan Assessment/Plan ASSESSMENT R foot cellulitis ( R 3r toe) R 3 rd toe abscess s/p I&D R 3 rd toe likely acute osteomyelitis obesity PLAN OF CARE MS floor abx ID follows blood cx preliminary negative wound cx + MRSA Venous Duplex BLE negative MRI could not exclude early OM bone scan highly suspicious fro acute OM will need total of 6 weeks of abx as per ID PICC line prior podiatry follows wound care as per podiatry recommendations weight bear as tolerated, DVT prophylaxis community case manager to arrange for HH for IV abx - in process dc when all arrangements made case discussed and evaluated by supervising physician Subjective Allergies: Coded Allergies: Crab (Verified Allergy, Severe, N/V, 07/10/16) Lobster (Verified Allergy, Severe, N/V, 07/10/16) SHRIMP (Verified Allergy, Severe, N/V, 07/10/16) Subjective denies pain, bone scan + acute OM afebrile, no leucocytosis Objective Last 24 Hour Vital Signs Date Time Temp Pulse Resp B/P Pulse Ox O2 Delivery O2 Flow Rate FiO2 07/16/16 12:04 98.3 95 19 139/86 97 Room Air 07/16/16 08:14 97.9 83 20 139/73 97 Room Air 07/16/16 04:00 97.7 71 17 124/73 96 Room Air 07/16/16 00:00 97.5 69 17 121/70 97 Room Air 07/15/16 20:00 97.7 90 18 123/69 95 Room Air 07/15/16 18:51 98.2 07/15/16 15:49 98.2 88 19 133/77 97 Room Air Intake and Output 07/15/16 07/16/16 19:00 07:00 Intake Total 1035.000 ml 1039.999 ml Output Total 950 ml Balance 85.000 ml 1039.999 ml Intake Oral 760 ml 490 ml IV Total 275.000 ml 549.999 ml Output Urine Total 950 ml # Voids 2 Objective General Appearance: no acute distress, other - A/A/O x 3 obese AA male HEENT: normocephalic, atraumatic, anicteric, mucous membranes moist Respiratory/Chest: lungs clear, no respiratory distress, no accessory muscle use Cardiovascular: normal peripheral pulses, normal rate, regular rhythm, no JVD Abdomen: normal bowel sounds, soft, non tender - obese Genitourinary: normal external genitalia Extremities: no edema Skin: other - # rd toe with dressing C/D/I, mild edema, erythema, TTP Neurologic/Psychiatric: no motor/sensory deficits, abnormal gait - with cane , alert, oriented x 3, responsive Musculoskeletal: normal muscle bulk Laboratory Tests 07/16/16 06:00: White Blood Count 7.7, Red Blood Count 5.21, Hemoglobin 15.6, Hematocrit 46.1, Mean Corpuscular Volume 89, Mean Corpuscular Hemoglobin 30.0, Mean Corpuscular Hemoglobin Concent 33.9, Red Cell Distribution Width 11.4L, Platelet Count 283, Mean Platelet Volume 5.9L, Neutrophils (%) (Auto) 63.9, Lymphocytes (%) (Auto) 20.1, Monocytes (%) (Auto) 9.1, Eosinophils (%) (Auto) 5.9H, Basophils (%) (Auto ) 1.0, Sodium Level 136, Potassium Level 4.0, Chloride Level 95L, Carbon Dioxide Level 26, Anion Gap 15, Blood Urea Nitrogen 13, Creatinine 0.8, Estimat Glomerular Filtration Rate > 60, Glucose Level 103, Calcium Level 9.8 Current Medications Medications (Trade) Dose Ordered Sig/Jordi Route PRN Reason Start Time Stop Time Status Last Admin Dose Admin Acetaminophen (Tylenol) 650 mg Q4H PRN ORAL fever 07/11/16 13:15 08/10/16 13:14 Al Hydroxide/Mg Hydroxide (Mylanta II) 30 ml Q6H PRN ORAL dyspepsia 07/11/16 13:15 08/10/16 13:14 Cyclobenzaprine HCl 5 mg 5 mg Q6H PRN ORAL Muscle Spasm 07/12/16 17:00 08/11/16 16:59 07/16/16 00:45 Dextrose (Dextrose 50%) STAT PRN IV Hypoglycemia 07/11/16 13:15 08/10/16 13:14 Heparin Sodium (Porcine) (Heparin 5000 units/ml) 5,000 units EVERY 12 HOURS SUBQ 07/11/16 21:00 08/10/16 20:59 07/16/16 10:54 Lorazepam (Ativan 2mg/ml 1ml) 0.5 mg Q4H PRN IV For Anxiety 07/11/16 13:15 07/18/16 13:14 Morphine Sulfate (Morphine Sulfate) 2 mg Q4H PRN IVP Moderate Pain (Pain Scale 4-6) 07/12/16 12:03 07/19/16 12:02 07/15/16 18:21 Morphine Sulfate (Morphine Sulfate) 4 mg Q3HR PRN IVP Severe Pain (Pain Scale 7-10) 07/12/16 12:30 07/19/16 12:29 07/15/16 10:41 Ondansetron HCl (Zofran) 4 mg Q6H PRN IVP Nausea & Vomiting 07/11/16 13:15 08/10/16 13:14 Polyethylene Glycol (Miralax) 17 gm HSPRN PRN ORAL Constipation 07/11/16 13:15 08/10/16 13:14 Vancomycin HCl (Vanco rx to dose) 1 ea DAILY PRN MISC Per rx protocol 07/11/16 13:15 08/10/16 13:14 Vancomycin HCl/ Dextrose (Vancomycin/D5W) 275 ml @ 183.333 mls/hr Q6HR IVPB 07/14/16 00:00 07/19/16 00:00 07/16/16 12:42 Zolpidem Tartrate (Ambien) 5 mg HSPRN PRN ORAL Insomnia 07/11/16 13:15 08/10/16 13:14 07/15/16 22:18 Dewayne (Dewayne)Lexii NP Jul 16, 2016 13:50
[2016-07-16 16:00] VITALS: BP 137/76
[2016-07-16 19:00] VITALS: BP 156/88
[2016-07-16] MEDS: Zolpidem 5mg tab ORAL PRN (23:10)
[2016-07-17] VITALS: BP 120/68
[2016-07-17 04:00] VITALS: BP 123/71
[2016-07-17] MEDS: Vancomycin 1.25 GM in D5W 275 ML IVPB SCH ×6 (05:49→23:54)
[2016-07-17 08:00] VITALS: BP 138/84
--- NOTE | 2016-07-17 08:33 | Podiatric Progress Note ---
Assessment/Plan Patient Ciaran Barrios is a 25 year old male who was admitted on Jul 11, 2016 at 10:25 with right 3rd toe abscess Problems: (1) Right foot pain (2) Abscess of third toe, right Assessment/Plan - Okay for patient to be discharged with IV antibiotics per infectious disease specialist recommendations. Patient is okay with coming to the emergency room daily for administration of the IV antibiotics if home health is unable to be set up. - Daily dressing changes - Weight bearing as tolerated Subjective Reason for consult Right 3rd toe abscess Allergies: Coded Allergies: Crab (Verified Allergy, Severe, N/V, 07/10/16) Lobster (Verified Allergy, Severe, N/V, 07/10/16) SHRIMP (Verified Allergy, Severe, N/V, 07/10/16) Subjective Patient states no pain currently. No nausea, vomiting, fevers, or chills. He is able to ambulate with only minimal pain. Objective Exam Last 24 Hour Vital Signs Date Time Temp Pulse Resp B/P Pulse Ox O2 Delivery O2 Flow Rate FiO2 07/17/16 04:00 97.9 83 18 123/71 99 Room Air 07/17/16 00:00 98.1 81 18 120/68 98 Room Air 07/16/16 19:00 97.7 103 20 156/88 99 Room Air 07/16/16 16:00 97.9 83 20 137/76 100 Room Air 07/16/16 12:04 98.3 95 19 139/86 97 Room Air Laboratory Tests Test 07/16/16 15:35 Vancomycin Level Trough 19.1 ug/mL (5.0-12.0) H Microbiology Date/Time Source Procedure Growth Status 07/12/16 12:30 Blood Blood Culture - Preliminary NO GROWTH AFTER 4 DAYS Resulted 07/11/16 08:30 Wound Gram Stain - Final Complete 07/11/16 08:30 Wound Culture - Final Staphylococcus Aureus - Mrsa Complete Exam Narrative Right 3rd toe edema and drainage has greatly improved. Mild pain with palpation. No purulence or malodor noted. Jameel Samano DPM Jul 17, 2016 08:33
[2016-07-17] MEDS: Heparin 5000 units/ml inj SUBQ SCH ×3 (10:08→21:38)
--- NOTE | 2016-07-17 10:44 | Infectious Diseases Prog Note ---
Assessment/Plan Assessment/Plan ASSESSMENT: 25-year-old male with: Right third toe abscess / acute osteomyelitis / cellulitis - WCx MRSA ( vanco BETHEL <=0.5 ) Bone scan: suspicious for acute osteomyelitis, probably of the third middle or distal phalanx MRI : early osteomyelitis cannot be completely ruled out. Afebrile without leukocytosis Obesity No ABX allergies Full Code PLAN: DC planning for IV vancomycin ( alt: daptomycin 6mg/kg daily or teflaro 600mg q12 ) d# 6 / 42 ( 07/14 SP cefepime d# 3 ) weekly CBC, CMP, ESR, CRP while on IV ABX wound care Subjective Allergies: Coded Allergies: Crab (Verified Allergy, Severe, N/V, 07/10/16) Lobster (Verified Allergy, Severe, N/V, 07/10/16) SHRIMP (Verified Allergy, Severe, N/V, 07/10/16) Subjective remains afebrile DC planning ongoing Objective Vital Signs Last 24 Hour Vital Signs Date Time Temp Pulse Resp B/P Pulse Ox O2 Delivery O2 Flow Rate FiO2 07/17/16 08:00 98.1 93 18 138/84 95 Room Air 07/17/16 04:00 97.9 83 18 123/71 99 Room Air 07/17/16 00:00 98.1 81 18 120/68 98 Room Air 07/16/16 19:00 97.7 103 20 156/88 99 Room Air 07/16/16 16:00 97.9 83 20 137/76 100 Room Air 07/16/16 12:04 98.3 95 19 139/86 97 Room Air Height (Feet): 5 Height (Inches): 10.00 Weight (Pounds): 265 General Appearance: no acute distress Respiratory/Chest: no respiratory distress Cardiovascular: normal rate, regular rhythm Abdomen: normal bowel sounds, soft, non tender, non distended Laboratory Tests Test 07/16/16 15:35 Vancomycin Level Trough 19.1 ug/mL (5.0-12.0) H Current Medications Medications (Trade) Dose Ordered Sig/Jordi Route PRN Reason Start Time Stop Time Status Last Admin Dose Admin Acetaminophen (Tylenol) 650 mg Q4H PRN ORAL fever 07/11/16 13:15 08/10/16 13:14 Al Hydroxide/Mg Hydroxide (Mylanta II) 30 ml Q6H PRN ORAL dyspepsia 3/13/17 13:15 08/10/16 13:14 Cyclobenzaprine HCl 5 mg 5 mg Q6H PRN ORAL Muscle Spasm 07/12/16 17:00 08/11/16 16:59 07/16/16 00:45 Dextrose (Dextrose 50%) STAT PRN IV Hypoglycemia 07/11/16 13:15 08/10/16 13:14 Heparin Sodium (Porcine) (Heparin 5000 units/ml) 5,000 units EVERY 12 HOURS SUBQ 07/11/16 21:00 08/10/16 20:59 07/17/16 10:08 Lorazepam (Ativan 2mg/ml 1ml) 0.5 mg Q4H PRN IV For Anxiety 07/11/16 13:15 07/18/16 13:14 Morphine Sulfate (Morphine Sulfate) 2 mg Q4H PRN IVP Moderate Pain (Pain Scale 4-6) 07/12/16 12:03 07/19/16 12:02 07/15/16 18:21 Morphine Sulfate (Morphine Sulfate) 4 mg Q3HR PRN IVP Severe Pain (Pain Scale 7-10) 07/12/16 12:30 07/19/16 12:29 07/15/16 10:41 Ondansetron HCl (Zofran) 4 mg Q6H PRN IVP Nausea & Vomiting 07/11/16 13:15 08/10/16 13:14 Polyethylene Glycol (Miralax) 17 gm HSPRN PRN ORAL Constipation 07/11/16 13:15 08/10/16 13:14 Vancomycin HCl (Vanco rx to dose) 1 ea DAILY PRN MISC Per rx protocol 07/11/16 13:15 08/10/16 13:14 Vancomycin HCl/ Dextrose (Vancomycin/D5W) 275 ml @ 183.333 mls/hr Q6HR IVPB 07/14/16 00:00 07/19/16 00:00 07/17/16 05:49 Zolpidem Tartrate (Ambien) 5 mg HSPRN PRN ORAL Insomnia 07/11/16 13:15 08/10/16 13:14 07/16/16 23:10 JASMIN CAMPBELL 19, 2017 10:44
[2016-07-17 12:00] VITALS: BP 149/89
--- NOTE | 2016-07-17 13:27 | Pulmonology Progress Note ---
Assessment/Plan Assessment/Plan ASSESSMENT R foot cellulitis ( R 3r toe) R 3 rd toe abscess s/p I&D R 3 rd toe likely acute osteomyelitis obesity PLAN OF CARE MS floor abx ID follows blood cx preliminary negative wound cx + MRSA Venous Duplex BLE negative MRI could not exclude early OM bone scan highly suspicious fro acute OM will need total of 6 weeks of abx as per ID PICC line prior podiatry follows wound care as per podiatry recommendations weight bear as tolerated, DVT prophylaxis bottle caser to arrange for HH for IV abx - in process dc when all arrangements made case discussed and evaluated by supervising physician Subjective Allergies: Coded Allergies: Crab (Verified Allergy, Severe, N/V, 07/10/16) Lobster (Verified Allergy, Severe, N/V, 07/10/16) SHRIMP (Verified Allergy, Severe, N/V, 07/10/16) Subjective denies pain, bone scan + acute OM afebrile, no leucocytosis awaiting for HH arrangement Objective Last 24 Hour Vital Signs Date Time Temp Pulse Resp B/P Pulse Ox O2 Delivery O2 Flow Rate FiO2 07/17/16 12:00 97.2 82 18 149/89 95 Room Air 07/17/16 08:00 98.1 93 18 138/84 95 Room Air 07/17/16 04:00 97.9 83 18 123/71 99 Room Air 07/17/16 00:00 98.1 81 18 120/68 98 Room Air 07/16/16 19:00 97.7 103 20 156/88 99 Room Air 07/16/16 16:00 97.9 83 20 137/76 100 Room Air Intake and Output 07/16/16 07/17/16 19:00 07:00 Intake Total 1178.333 ml 1329.999 ml Balance 1178.333 ml 1329.999 ml Intake Oral 720 ml 780 ml IV Total 458.333 ml 549.999 ml # Voids 3 6 Objective General Appearance: no acute distress, other - A/A/O x 3 obese AA male HEENT: normocephalic, atraumatic, anicteric, mucous membranes moist Respiratory/Chest: lungs clear, no respiratory distress, no accessory muscle use Cardiovascular: normal peripheral pulses, normal rate, regular rhythm, no JVD Abdomen: normal bowel sounds, soft, non tender - obese Genitourinary: normal external genitalia Extremities: no edema Skin: other - # rd toe with dressing C/D/I, mild edema, erythema, TTP Neurologic/Psychiatric: no motor/sensory deficits, abnormal gait - with cane , alert, oriented x 3, responsive Musculoskeletal: normal muscle bulk Laboratory Tests 07/16/16 15:35: Vancomycin Level Trough 19.1H Current Medications Medications (Trade) Dose Ordered Sig/Jordi Route PRN Reason Start Time Stop Time Status Last Admin Dose Admin Acetaminophen (Tylenol) 650 mg Q4H PRN ORAL fever 07/11/16 13:15 08/10/16 13:14 Al Hydroxide/Mg Hydroxide (Mylanta II) 30 ml Q6H PRN ORAL dyspepsia 07/11/16 13:15 08/10/16 13:14 Cyclobenzaprine HCl 5 mg 5 mg Q6H PRN ORAL Muscle Spasm 07/12/16 17:00 08/11/16 16:59 07/16/16 00:45 Dextrose (Dextrose 50%) STAT PRN IV Hypoglycemia 07/11/16 13:15 08/10/16 13:14 Heparin Sodium (Porcine) (Heparin 5000 units/ml) 5,000 units EVERY 12 HOURS SUBQ 07/11/16 21:00 08/10/16 20:59 07/17/16 10:08 Lorazepam (Ativan 2mg/ml 1ml) 0.5 mg Q4H PRN IV For Anxiety 07/11/16 13:15 07/18/16 13:14 Morphine Sulfate (Morphine Sulfate) 2 mg Q4H PRN IVP Moderate Pain (Pain Scale 4-6) 07/12/16 12:03 07/19/16 12:02 07/15/16 18:21 Morphine Sulfate (Morphine Sulfate) 4 mg Q3HR PRN IVP Severe Pain (Pain Scale 7-10) 07/12/16 12:30 07/19/16 12:29 07/15/16 10:41 Ondansetron HCl (Zofran) 4 mg Q6H PRN IVP Nausea & Vomiting 07/11/16 13:15 08/10/16 13:14 Polyethylene Glycol (Miralax) 17 gm HSPRN PRN ORAL Constipation 07/11/16 13:15 08/10/16 13:14 Vancomycin HCl (Vanco rx to dose) 1 ea DAILY PRN MISC Per rx protocol 07/11/16 13:15 08/10/16 13:14 Vancomycin HCl/ Dextrose (Vancomycin/D5W) 275 ml @ 183.333 mls/hr Q6HR IVPB 07/14/16 00:00 07/19/16 00:00 07/17/16 12:42 Zolpidem Tartrate (Ambien) 5 mg HSPRN PRN ORAL Insomnia 07/11/16 13:15 08/10/16 13:14 07/16/16 23:10 Dewayne (Dewayne)Lexii NP Jul 17, 2016 13:27
[2016-07-17 16:00] VITALS: BP 124/60
[2016-07-17 19:00] VITALS: BP 148/92
[2016-07-17] MEDS: Zolpidem 5mg tab ORAL PRN (22:41)
[2016-07-18] VITALS: BP 135/87
[2016-07-18 04:00] VITALS: BP 128/78
[2016-07-18] MEDS: Vancomycin 1.25 GM in D5W 275 ML IVPB SCH ×2 (05:47→11:59)
[2016-07-18 08:15] VITALS: BP 134/93
--- NOTE | 2016-07-18 10:09 | Infectious Diseases Prog Note ---
Assessment/Plan Assessment/Plan ASSESSMENT: 25-year-old male with: Right third toe abscess / acute osteomyelitis / cellulitis - WCx MRSA ( vanco BETHEL <=0.5 ) Bone scan: suspicious for acute osteomyelitis, probably of the third middle or distal phalanx MRI : early osteomyelitis cannot be completely ruled out. Afebrile without leukocytosis Obesity No ABX allergies Full Code PLAN: DC planning for IV vancomycin ( alt: daptomycin 6mg/kg daily or teflaro 600mg q12 ) d# 7 / 42 ( 07/14 SP cefepime d# 3 ) weekly CBC, CMP, ESR, CRP while on IV ABX wound care Subjective Allergies: Coded Allergies: Crab (Verified Allergy, Severe, N/V, 07/10/16) Lobster (Verified Allergy, Severe, N/V, 07/10/16) SHRIMP (Verified Allergy, Severe, N/V, 07/10/16) Subjective remains afebrile DC planning ongoing Objective Vital Signs Last 24 Hour Vital Signs Date Time Temp Pulse Resp B/P Pulse Ox O2 Delivery O2 Flow Rate FiO2 07/18/16 08:15 97.9 93 22 134/93 95 Room Air 07/18/16 04:00 97.9 81 17 128/78 99 Room Air 07/18/16 00:00 97.5 83 17 135/87 98 Room Air 07/17/16 19:00 97.5 86 20 148/92 100 Room Air 07/17/16 16:00 97.9 87 20 124/60 100 Room Air 07/17/16 12:00 97.2 82 18 149/89 95 Room Air Height (Feet): 5 Height (Inches): 10.00 Weight (Pounds): 265 General Appearance: no acute distress Respiratory/Chest: no respiratory distress Cardiovascular: normal rate, regular rhythm Abdomen: normal bowel sounds, soft, non tender, non distended Current Medications Medications (Trade) Dose Ordered Sig/Jordi Route PRN Reason Start Time Stop Time Status Last Admin Dose Admin Acetaminophen (Tylenol) 650 mg Q4H PRN ORAL fever 07/11/16 13:15 08/10/16 13:14 Al Hydroxide/Mg Hydroxide (Mylanta II) 30 ml Q6H PRN ORAL dyspepsia 07/11/16 13:15 08/10/16 13:14 Cyclobenzaprine HCl 5 mg 5 mg Q6H PRN ORAL Muscle Spasm 07/12/16 17:00 08/11/16 16:59 07/16/16 00:45 Dextrose (Dextrose 50%) STAT PRN IV Hypoglycemia 07/11/16 13:15 08/10/16 13:14 Heparin Sodium (Porcine) (Heparin 5000 units/ml) 5,000 units EVERY 12 HOURS SUBQ 07/11/16 21:00 08/10/16 20:59 07/17/16 21:38 Lorazepam (Ativan 2mg/ml 1ml) 0.5 mg Q4H PRN IV For Anxiety 07/11/16 13:15 07/18/16 13:14 Morphine Sulfate (Morphine Sulfate) 2 mg Q4H PRN IVP Moderate Pain (Pain Scale 4-6) 07/12/16 12:03 07/19/16 12:02 07/15/16 18:21 Morphine Sulfate (Morphine Sulfate) 4 mg Q3HR PRN IVP Severe Pain (Pain Scale 7-10) 07/12/16 12:30 07/19/16 12:29 07/15/16 10:41 Ondansetron HCl (Zofran) 4 mg Q6H PRN IVP Nausea & Vomiting 07/11/16 13:15 08/10/16 13:14 Polyethylene Glycol (Miralax) 17 gm HSPRN PRN ORAL Constipation 07/11/16 13:15 08/10/16 13:14 Vancomycin HCl (Vanco rx to dose) 1 ea DAILY PRN MISC Per rx protocol 07/11/16 13:15 08/10/16 13:14 Vancomycin HCl/ Dextrose (Vancomycin/D5W) 275 ml @ 183.333 mls/hr Q6HR IVPB 07/14/16 00:00 07/19/16 00:00 07/18/16 05:47 Zolpidem Tartrate (Ambien) 5 mg HSPRN PRN ORAL Insomnia 07/11/16 13:15 08/10/16 13:14 07/17/16 22:41 JASMIN CAMPBELL 20, 2017 10:09
[2016-07-18] MEDS ORDERED: VANCOMYCIN1 GM/2502 IVPB ×2 (10:33→10:34)
[2016-07-18 12:15] VITALS: BP 127/73
[2016-07-18] MEDS ORDERED: NS 275ml ONE (16:15)
--- NOTE | 2016-07-19 09:09 | Discharge Summary ---
Discharge Summary Hospital Course Date of Admission Jul 11, 2016 at 10:25 Date of Discharge Jul 18, 2016 at 16:16 Admitting Diagnosis cellulitis/abscess R. foot HPI Ciaran Barrios is a 25 year old male who was admitted on Jul 11, 2016 at 10:25 for Cellulitis, Abscess Right Foot Hospital Course dc summary #[id number] Discharge Medications Continued Medications: Vancomycin Hcl/D5w (Vancomycin-D5w 1 G/250 Ml) 1 Gm/250 Ml Plast..bag 1.25 GM IVPB Q6HR for 35 Days, BAG Discharge Discharge Disposition Patient was discharged to Home with Home Health(06) for IV abx and wound care Discharge Diagnoses: Dewayne (Dewayne)Lexii NP Jul 19, 2016 09:09
--- NOTE | 2016-07-19 22:59 | Discharge Summary 2 SIG ---
DATE OF ADMISSION: 07/11/2016 DATE OF DISCHARGE: 07/18/2016 REASON FOR ADMISSION: 25-year-old male presented to the emergency room for infection of the right third toe. The patient underwent incision and drainage earlier and started on oral antibiotic. The patient returned for wound check. The patient was seen in the emergency room on the day before- on 07/10/2016. The patient stated that initial symptoms started a week and a half ago. The patient has no history of diabetes. He believed that toenail from his other toe caught into the skin of his toe and then he developed infection. He denied fever, chills, nausea, or vomiting; however, he reported minimal improvement in the wound with antibiotic as well as redness on the right foot. The patient was afebrile, no leukocytosis. Right third toe demonstrated purulent discharge on 07/10/16 when he underwent incision and drainage. The patient was admitted for further IV antibiotic and further evaluation for surgery for possible operative incision and drainage. No evidence of sepsis or systemic infection at the time of presentation. ADMITTING DIAGNOSES: Abscess of the right third toe Cellulitis and abscess of the right foot. HOSPITAL STAY: The patient was admitted to the hospital. ID consult was requested. Podiatry followed. Blood culture were negative. Wound culture revealed MRSA. Venous duplex of bilateral lower extremities was negative. MRI of the right foot could not exclude an early osteomyelitis; therefore, bone scan was ordered by infectious disease doctor, which revealed findings highly suspicious for acute osteomyelitis. The patient needs a total of six weeks of antibiotic as per ID. PICC line was placed. General Claims Agent followed. The patient can bear weight for 12 hours as per youth accommodation support worker. Wound care to be done at home as per podiatry recommendation. Deep venous thrombosis prophylaxis provided. detail manager arranged for home health for IV antibiotics and wound care. The patient was stable for discharge. DISCHARGE DIAGNOSES: 1. Right foot cellulitis. 2. Right third toe abscess, status post incision and drainage. 3. Right third toe osteomyelitis. 4. Obesity. DISCHARGE MEDICATIONS: See medication reconciliation list. DISCHARGE INSTRUCTIONS: The patient was discharged home with home health. Dari Cunha M.D. Lexii Buchanan N.P. (Vanchtein) DR: DIANE JOB#: [id number] CC: AMPARO
--- NOTE | 2016-08-04 09:18 | Diagnostic Imaging Report ---
Indications: Needs long-term IV access Technique: Ultrasound confirms patent compressible left basilic vein. Total sterile technique, including sterile probe cover and sterile gel, hat, mask,, sterile gown, large sterile drape, and preparation with 2% chlorhexidine utilized. Local anesthesia with 1% lidocaine. Under real-time ultrasound guidance, puncture basilic vein using 21-gauge needle, documented and archived, passage 0.018 guidewire under direct fluoroscopy, which was used to determine appropriate catheter length, exchange for 5 Swedish peel-away sheath. 5 Swedish Bard dual-lumen power PICC cut to were 6 cm. It was inserted through the peel-away sheath. Peel-away sheath and guidewire removed. Catheter fixed to the skin. Both catheter ports aspirated and flushed. Patient tolerated procedure well, without immediate complication. Digital radiograph documents satisfactory catheter tip position, at the cavoatrial junction. Total fluoroscopy time 0.1 minutes. Total dose area product 2.8 dGycm2 Impression: Successful placement of left arm PICC under sonographic and fluoroscopic guidance, as described above.
== END 2016-07-18 16:16 | disposition home health service (06) | DRG 344 ==
LOC: EMR 08:37 → 4E 10:25 → EDBEDREQ 10:34
PROC: 0H9MXZZ Drainage of Right Foot Skin, External Approach (ICD-10-PCS; principal; 2016-07-12)
PROC: 02HV33Z Insertion of Infusion Device into Superior Vena Cava, Percutaneous Approach (ICD-10-PCS; 2016-07-15)
DX: M86.171 Other acute osteomyelitis, right ankle and foot (principal); L03.115 Cellulitis of right lower limb; L02.611 Cutaneous abscess of right foot; E66.9 Obesity, unspecified; B95.62 Methicillin resistant Staphylococcus aureus infection as the cause of diseases classified elsewhere
CPT/HCPCS: 36415; 36569; 76937; 78315; 80048; 80053; 80061; 80202; 83036; 83735; 84100; 84443; 85025; 87040; 87070; 87181; 87205; 93970